=== PATIENT | female | born 1990 | race Caucasian/White ===

== ENCOUNTER 2017-08-04 14:13 | Emergency (ER) | payer SELFPAY ==
[2017-08-04] MEDS ORDERED: NS 0.9% 1000 ML* 2,000 ML IV ONE (14:58)
[2017-08-04] MEDS ORDERED: Ondansetron INJ* 2 MG/ML VIAL IV ONE (14:58)
[2017-08-04 15:33] LABS: Urine Appearance Cloudy; Urine Blood Negative (Negative); Urine Color Amber; Urine Ketones 2+ (Negative); Urine Protein 1+(30 mg/dL) (Negative); Urine Specific Gravity 1.029 (1.010-1.030); Urine Urobilinogen Negative (Negative)
[2017-08-04 16:54] LABS: ABS Basophils 0 10^3/ul (0-0.2); ABS Eosinophils 0 10^3/ul (0-0.6); ABS Lymphocytes 2.4 10^3/ul (1.0-4.8); ABS Monocytes 0.4 10^3/ul (0-0.8); ABS Neutrophils 5.1 10^3/ul (1.5-7.7); ABS Nucleated RBC 0 10^3/ul; Eosinophil % 0.4 % (0-6); Hematocrit 38 % (35-47); Hemoglobin 13.5 g/dl (12.0-16.0); Lymphocyte % 30.3 % (25-47); Mean Corpuscular HGB Conc 35 g/dl (31-36); Mean Corpuscular Hemoglobin 32 pg (27-31); Mean Corpuscular Volume 90 fL (80-97); Mean Platelet Volume 7.1 um3 (7.4-10.4); Nucleated Red Blood Cells % 0; Platelet Count 317 10^3/ul (150-450); Red Blood Count 4.28 10^6/ul (4.0-5.4); Red Cell Distribution Width 16 % (10.5-15)
[2017-08-04 17:14] LABS: EGFR Non-African American 138.4 (>60)
[2017-08-04 18:34] VITALS: BP 120/92
--- NOTE | 2017-08-07 07:48 | ED ---
Shubham Alaniz Angela, scribed for Joselito Eastman MD on 08/04/17 at 1501 . - HPI Summary HPI Summary: This pt is a 27 y/o female, currently 8 weeks , presenting to [facility] c/o nausea and vomiting since 04:00 this morning. Pt reports she is unable to keep anything down secondary to vomiting. She states her symptoms are aggravated by ambulation. Additionally she c/o chills, hot flashes, and white vaginal discharge (which she notes it's normal). Denies vaginal bleeding, abdominal cramping. Her first appointment with her OBGyn is in 3 days. - History of Current Complaint Chief Complaint: EDNoryuseaVomitDiarrjeremiah Stated Complaint: VOMITTING/8 WKS PREG Time Seen by Provider: 08/04/17 14:55 Hx Obtained From: Patient Chief Complaint: Vaginal Discharge - white, Other: - nausea and vomiting Onset/Duration: Started Hours Ago, Still Present Timing: Lasting Hours Current Severity: None Pain Intensity: 0 Location of Pain: None Character: None Aggravating Factors: Other: - ambulating Alleviating Factors: Nothing Associated Signs and Symptoms: Positive: Nausea, Vaginal Bleeding or Discharge - POS: vaginal discharge. NEG: vaginal bleeding, Vomiting. Negative: Fever, Urinary Symptoms - Assessment Hx Now: No - Additional Pertinent History Primary Care Physician: [id number] - Allergies/Home Medications Allergies/Adverse Reactions: Allergies Allergy/AdvReac Type Severity Reaction Status Date / Time morphine Allergy Hives Verified 08/04/17 14:23 Home Medications: Home Medications Buprenorphine TAB* [Subutex TAB*] 8 mg SL TID 08/04/17 [History Confirmed ] PMH/Surg Hx/FS Hx/Imm Hx Endocrine/Hematology History: Denies: Hx Diabetes, Hx Thyroid Disease Cardiovascular History: Denies: Hx Hypertension Respiratory History: Denies: Hx Asthma, Hx Chronic Obstructive Pulmonary Disease (COPD) GI History: Denies: Hx Ulcer Psychiatric History: Reports: Hx Substance Abuse - IV drug use - Surgical History Surgery Procedure, Year, and Place: Tonsillectomy age 16 Infectious Disease History: No Infectious Disease History: Reports: Hx Hepatitis Denies: Hx Clostridium Difficile, Hx Human Immunodeficiency Virus (HIV), Hx of Known/Suspected MRSA, Hx Shingles, Hx Tuberculosis, Hx Known/Suspected VRE, Hx Known/Suspected VRSA, History Other Infectious Disease, Traveled Outside the [place] in Last 30 Days - Family History Known Family History: Positive: None - Social History Alcohol Use: None Substance Use Type: Reports: Heroin Substance Use Comment - Amount & Last Used: OPIATES Smoking Status (MU): Light Every Day Tobacco Smoker Type: Cigarettes Amount Used/How Often: 1/4 PPD Length of Time of Smoking/Using Tobacco: 6+ years Review of Systems Constitutional: Other - hot flashes Positive: Chills. Negative: Fever Positive: Vomiting, Nausea. Negative: Abdominal Pain Positive: discharge - white . Negative: other - vaginal bleeding Skin: Negative Neurological: Negative All Other Systems Reviewed And Are Negative: Yes Physical Exam - Summary Physical Exam Summary: VITAL SIGNS: Reviewed. GENERAL: Patient is a well-developed and nourished female who is lying comfortable in the stretcher. Patient is not in any acute respiratory distress. HEAD AND FACE: No signs of trauma. No ecchymosis, hematomas or skull depressions. No sinus tenderness. EYES: PERRLA, EOMI x 2, No injected conjunctiva, no nystagmus. EARS: Hearing grossly intact. Ear canals and tympanic membranes are within normal limits. MOUTH: Oropharynx within normal limits. NECK: Supple, trachea is midline, no adenopathy, no JVD, no carotid bruit, no c- spine tenderness, neck with full ROM. CHEST: Symmetric, no tenderness at palpation LUNGS: Clear to auscultation bilaterally. No wheezing or crackles. CVS: Regular rate and rhythm, S1 and S2 present, no murmurs or gallops appreciated. ABDOMEN: Soft, non-tender. No signs of distention. No rebound no guarding, and no masses palpated. Bowel sounds are normal. EXTREMITIES: FROM in all major joints, no edema, no cyanosis or clubbing. NEURO: Alert and oriented x 3. No acute neurological deficits. Speech is normal and follows commands. SKIN: Dry and warm - Physical Exam Triage Information Reviewed: Yes Vital Signs Reviewed: Yes Diagnostics - Vital Signs Vital Signs Temp Pulse Resp BP Pulse Ox 08/04/17 14:19 97.3 F 74 18 125/80 97 - Laboratory Result Diagrams: 08/04/17 16:30 08/04/17 17:59 Lab Statement: Any lab studies that have been ordered have been reviewed, and results considered in the medical decision making process. Re-Evaluation - Re-Evaluation First Eval Re-Evaluation Time: 17:55 Comment: Potassium is hemolyzed. Pt declines repeat blood work. Course/Dx - Course Assessment/Plan: This pt is a 27 y/o female, currently 8 weeks , presenting to [facility] c/o nausea and vomiting since 04:00 this morning. Pt reports she is unable to keep anything down secondary to vomiting. She states her symptoms are aggravated by ambulation. Additionally she c/o chills, hot flashes, and white vaginal discharge (which she notes it's normal). Denies vaginal bleeding, abdominal cramping. Her first appointment with her OBGyn is in 3 days. Test results without any significant abnormalities. In the ED course the pt was give IV fluids and Zofran for the nausea. After these medications, the pt is drinking and eating without nausea and vomiting. Therefore she will be discharged to home with follow up from her PCP. I discussed all the findings and test results with the patient. All questions were answered to patient satisfaction. There were no further complaints or concerns. Pt was given a prescription for Diclegis. She is instructed to return to the ED for any worsening or new symptoms. Pt is hemodynamically stable, alert and oriented x3. - Diagnoses Provider Diagnoses: Nausea and vomiting in , Hyperemesis gravidarum Discharge - Sign-Out/Discharge Documenting (check all that apply): Discharge - discharge to home - Discharge Plan Condition: Stable Disposition: HOME Prescriptions: Doxylamine/Pyridoxine(NF) [Diclegis (NF)] 1 tab PO BID #20 tab Patient Education Materials: Nausea and Vomiting in (ED), Hyperemesis Gravidarum (ED) Referrals: [facility] [Provider Group] (Address: [place] [address] ) No Primary Care Phys,NOPCP [Primary Care Provider] - Additional Instructions: Please follow up with your OBGyn as scheduled this Thursday. RETURN TO THE ED FOR ANY NEW OR WORSENING SYMPTOMS. The documentation as recorded by the Shubham wagner Angela accurately reflects the service I personally performed and the decisions made by me, Joselito Eastman MD.
== END 2017-08-04 18:32 | disposition home or self-care (01) ==
LOC: ED 14:13
DX: O21.0 Mild hyperemesis gravidarum (principal); R68.83 Chills (without fever); N89.8 Other specified noninflammatory disorders of vagina; Z3A.08 8 weeks gestation of pregnancy; Z88.5 Allergy status to narcotic agent; F17.210 Nicotine dependence, cigarettes, uncomplicated
CPT/HCPCS: 36415; 80053; 81003; 81015; 83690; 84702; 85025; 86140; 87086; 96374; 99283; J2405

== ENCOUNTER 2017-08-22 10:59 | Emergency (ER) | payer SELFPAY ==
[2017-08-22] MEDS ORDERED: Ondansetron INJ* 2 MG/ML VIAL IV ONE (11:34)
[2017-08-22] MEDS ORDERED: NS 0.9% 1000 ML* 1,000 ML IV ONE (11:34)
[2017-08-22] MEDS ORDERED: Ondansetron ODT TAB* 4 MG ONE (12:02)
[2017-08-22] MEDS ORDERED: Ondansetron ODT TAB* 4 MG SL ONE ×3 (12:02→16:06)
--- NOTE | 2017-08-22 12:13 | ED ---
- HPI Summary HPI Summary: Patient is a 27-year-old 10 week female who presents to the ED with chief complaint of intractable nausea vomiting 3 days. She states she has had insomnia over the past 2 days due to the profuse amount of vomiting. She continues to drink, but is not eating well. She has been taking Reglan at home without relief and states [employer] normally works for her. Denies any abdominal pain or diarrhea or constipation. Denies any vaginal discharge, abnormal bleeding. History of Iv drug use, last use 11 months ago per patient. Smoker. She is attempting to quit at this time. She denies any other concerns or complaints. Afebrile and vital signs stable on arrival, denies any fevers, sweats, chills. - History of Current Complaint Chief Complaint: EDNauseaVomitDiarrh Stated Complaint: VOMITING Time Seen by Provider: 08/22/17 11:27 Hx Obtained From: Patient Onset/Duration: Started Days Ago Timing: Constant Severity: Moderate Current Severity: Moderate Pain Intensity: 2 Associated Signs and Symptoms: Positive: Nausea - Assessment Hx Now: No - Additional Pertinent History Primary Care Physician: [id number] - Allergies/Home Medications Allergies/Adverse Reactions: Allergies Allergy/AdvReac Type Severity Reaction Status Date / Time morphine Allergy Hives Verified 08/22/17 11:02 PMH/Surg Hx/FS Hx/Imm Hx Previously Healthy: Yes Endocrine/Hematology History: Denies: Hx Diabetes, Hx Thyroid Disease Cardiovascular History: Denies: Hx Hypertension Respiratory History: Denies: Hx Asthma, Hx Chronic Obstructive Pulmonary Disease (COPD) GI History: Denies: Hx Ulcer Psychiatric History: Reports: Hx Substance Abuse - IV drug use - Surgical History Surgery Procedure, Year, and Place: Tonsillectomy age 16 - Immunization History Hx Pertussis Vaccination: No Immunizations Up to Date: Yes Infectious Disease History: No Infectious Disease History: Reports: Hx Hepatitis Denies: Hx Clostridium Difficile, Hx Human Immunodeficiency Virus (HIV), Hx of Known/Suspected MRSA, Hx Shingles, Hx Tuberculosis, Hx Known/Suspected VRE, Hx Known/Suspected VRSA, History Other Infectious Disease, Traveled Outside the [place] in Last 30 Days - Family History Known Family History: Positive: None - Social History Occupation: Unemployed Lives: With Family Alcohol Use: None Hx Substance Use: Yes Substance Use Type: Reports: Heroin Substance Use Comment - Amount & Last Used: OPIATES 11 months ago heroin & opiates Hx Tobacco Use: Yes Smoking Status (MU): Light Every Day Tobacco Smoker Type: Cigarettes Amount Used/How Often: 1/4 PPD Length of Time of Smoking/Using Tobacco: 6+ years Review of Systems Constitutional: Negative Negative: Fever, Chills, Fatigue, Skin Diaphoresis Eyes: Negative Cardiovascular: Negative Positive: Vomiting, Nausea Musculoskeletal: Negative Skin: Negative Neurological: Negative All Other Systems Reviewed And Are Negative: Yes Physical Exam - Physical Exam Triage Information Reviewed: Yes Vital Signs Reviewed: Yes Appearance: Positive: Well-Appearing, Well-Nourished Skin: Positive: Warm, Skin Color Reflects Adequate Perfusion Head/Face: Positive: Normal Head/Face Inspection Eyes: Positive: EOMI, MILLY Neck: Positive: Supple, No Lymphadenopathy Respiratory/Lung Sounds: Positive: Clear to Auscultation, Breath Sounds Present Cardiovascular: Positive: RRR, Pulses are Symmetrical in both Upper and Lower Extremities Abdomen Description: Positive: Soft. Negative: CVA Tenderness (R), CVA Tenderness (L), McBurney's Point Tenderness Neurological: Positive: Normal, Sensory/Motor Intact, Alert, Oriented to Person Place, Time Psychiatric: Positive: Normal AVPU Assessment: Alert Diagnostics - Vital Signs Vital Signs Temp Pulse Resp BP Pulse Ox 08/22/17 11:02 98.4 F 73 20 118/73 100 - Laboratory Lab Statement: Any lab studies that have been ordered have been reviewed, and results considered in the medical decision making process. Course/Dx - Course Course Of Treatment: Patient is evaluated for nausea vomiting acutely at 10 weeks . She is given ODT Zofran in the ED and states this normally works for her. She has been taking Reglan at home without relief. She was given Zofran ODT without relief on arrival. Attempted to line and lab her several times. She continues to vomit. She was given another Zofran ODT and again vomited. Continue to attempt to get a line with an attempt for a left- sided EJ. Patient is an IV drug user and 3 RNs and provider attempted to get lines without success. Tigan 200 mg IM given with relief. She also complains of some heartburn due to vomiting. She is given Maalox 30 ml with relief. She continues to drink water, devon nba and crackers. She states she feels better , denies any nausea or vomiting at this time and requests to be discharged. She is okay for discharge at this time and will follow up with her [facility]. Zofran prescription sent. She is encouraged to take Reglan first-line, and Zofran and Reglan does not seem to be improving her symptoms. Maalox also given for any epigastric discomfort. - Differential Diagnosis/HQI/PQRI: Other: - Nausea, vomiting, vomiting in , cyclic vomiting syndrome - Diagnoses Provider Diagnoses: Nausea/vomiting in Discharge - Sign-Out/Discharge Documenting (check all that apply): Discharge - Discharge Plan Condition: Stable Disposition: HOME Prescriptions: Al Hydrox/Mg Hydrox/Simet LIQ* [Maalox Plus*] 30 ml PO Q4H PRN #360 udc PRN Reason: Pain Ondansetron ODT TAB* [Zofran 4 MG Odt TAB*] 4 mg PO Q6H PRN #12 tab.odt MDD 4 PRN Reason: Nausea Patient Education Materials: Nausea and Vomiting in (ED) Referrals: Bobby Degroot MD [Medical Doctor] - No Primary Care Phys,NOPCP [Primary Care Provider] - Additional Instructions: Please follow up with [facility] Take Reglan as first line for any nausea vomiting and If this continues to not improve your symptoms, you may take Zofran Maalox for any epigastric pain related to vomiting - Billing Disposition and Condition Condition: STABLE Disposition: HOME
[2017-08-22] MEDS ORDERED: Trimethobenzamide IM* 100 MG/ML 2 ml VIAL IM ONE (13:52)
[2017-08-22] MEDS ORDERED: Al Hydrox/Mg Hydrox/Simet LIQ* 30 ML UDC PO ONE (16:06)
[2017-08-22 17:43] VITALS: BP 116/80
== END 2017-08-22 17:42 | disposition home or self-care (01) ==
LOC: ED 10:59
DX: O21.0 Mild hyperemesis gravidarum (principal); Z3A.10 10 weeks gestation of pregnancy; O99.331 Smoking (tobacco) complicating pregnancy, first trimester; F17.210 Nicotine dependence, cigarettes, uncomplicated
CPT/HCPCS: 96360; 96374; 99283; A9270-GY; J2405; J3250

== ENCOUNTER 2018-03-10 07:47 | Inpatient (IN) | payer OTHER ==
[2018-03-10] MEDS ORDERED: Nicotine Inhaler* 10 MG AMP INH PRN (08:45)
[2018-03-10] MEDS ORDERED: Mouth Piece, Nicotine* 1 EACH CARTRIDGE INH PRN (08:47)
[2018-03-10] MEDS ORDERED: Oxytocin in LR* 20 UNITS/1,000 ML BAG IVPB SCH (09:00)
--- NOTE | 2018-03-10 09:06 | HP ---
General Information - Reason for Visit Term with IUGR here for induction of labor - General Information Maternal Age: 27 Grav: 2 Para: 1 SAB: 0 IEA: 0 Estimated Due Date: 03/17/18 Determined By: LMP Maternal Blood Type and Rh: O Positive - Results this Serology/RPR Result: Non-Reactive Rubella Result: Immune HBsAg Result: Negative HIV Result: Negative GBS Culture Result: Negative Past Medical History Delivery History: Hx Uncomplicated Vaginal Delivery Delivery History Comment: SVB 2007 Pertinent Past Medical History: See Records Past Medical History Comment: Hx drug abuse, currently on Subutex Hep C, currently undetectable Depression Blind in right eye Pertinent Past Surgical History: See Records Past Surgical History Comment: Tonsillectomy Right arm surgeries secondary to abcesses 2013 Pertinent Family History: See Records Family History Comment: Alcoholism Lung dz [place] Liver Ca Emphysema - Antepartal Records Antepartal Records: Reviewed, Complicated by: - IUGR, on Subutex, smoker, THC use Review of Systems Constitutional: Comfortable CV Complaint: No Respiratory: Shortness of Breath: No Gastrointestinal: No Nausea/Vomiting, Normal Bowel Movement Genitourinary: No Dysuria, No Bleeding, No Leaking Fluid Musculoskeletal: Contractions Neurological: No Headache, No Visual Changes Movement: Normal Exam Allergies/Adverse Reactions: Allergies morphine Allergy (Verified 08/22/17 11:02) Hives BP 122/81 T 97.6 HR 85 O2 100 RR 17 - Measurements Height: 5 ft Weight: 126 lb Weight in lbs: [id number] Body Mass Index (BMI): 24.6 Pre- Weight: 105 lb Weight Gained This : 21 lbs and 0 ozs - Exam Breast: Breast Exam Deferred CVA: No CVA Tenderness Extremities: No Edema Heart: Normal Rhythm/Heart Sounds HEENT: No Significant Findings Lungs: Clear Bilaterally Rectal: Rectal Exam Deferred Reflexes: DTR 2+, - - no clonus Thyroid: - - WNL @ entry to care - Abdominal Exam Abdomen Exam: Non-Tender, Fundal Height Consistent with Dates - Ultrasound/Biophysical Profile Ultrasound Status: Not Done Targeted Exam Findings See L&D Outpatient Visit Provider Note for Findings: Yes Estimated Weight: 5lb Presenting Part: Vertex Membrane Status: Intact Bleeding/Discharge: None EFM Findings - External Monitor Findings Baseline Heart Rate: 130 External Monitor Findings: Accelerations Present, No Pattern of Variable or Late Decelerations, Variability Moderate Contractions: Irregular, Mild, < 45 Seconds Contraction Frequency: Q 15 min Assessment/Plan - Assessment 27 yo with IUP @ 39+0 weeks gestation. IBOW. No evidence acidemia - Obstetrical Risk Factors Obstetrical Risk Factors: Substance Abuse, Tobacco Use, IUGR - Plan Plan: Induction, Admit - Anticipate Vaginal Delivery Plan Comment: Admit to L&D. PARQ discussion use of pitocin for labor induction. Patient in agreement and will initiate IV and begin low-dose pitocin. Patient may desire labor epidural or spinal anesthesia. Consider hydrotherapy and nitrous for pain management as well. Anticipate SVB. - Date/Time of Admission Date of Admission: 03/10/18 Time of Admission: 08:29
[2018-03-10 10:06] LABS: ABS Basophils 0 10^3/ul (0-0.2); ABS Eosinophils 0.2 10^3/ul (0-0.6); ABS Lymphocytes 2.5 10^3/ul (1.0-4.8); ABS Monocytes 0.5 10^3/ul (0-0.8); ABS Nucleated RBC 0 10^3/ul; Eosinophil % 2.3 % (0-6); Hematocrit 37 % (35-47); Hemoglobin 12.7 g/dl (12.0-16.0); Lymphocyte % 24.6 % (25-47); Mean Corpuscular HGB Conc 35 g/dl (31-36); Mean Corpuscular Hemoglobin 34 pg (27-31); Mean Corpuscular Volume 99 fL (80-97); Mean Platelet Volume 7.4 fL (7.4-10.4); Nucleated Red Blood Cells % 0; Platelet Count 412 10^3/ul (150-450); Red Blood Count 3.72 10^6/ul (4.00-5.40); Red Cell Distribution Width 13 % (10.5-15); White Blood Count 10.2 10^3/ul (3.5-10.8)
[2018-03-10] MEDS ORDERED: OBEPIDURAL* 250 ML EPIDURAL ONE (11:39)
[2018-03-10] MEDS ORDERED: EPHEDrine (Pressors)* 50 MG/ML VIAL IV PUSH PRN ×2 (12:32)
[2018-03-10] MEDS ORDERED: Famotidine TAB* 20 MG PO PRN (12:32)
[2018-03-10] MEDS ORDERED: Sodium Citrate/Citric Acid* 15 ML UDC PO PRN (12:32)
[2018-03-10] MEDS ORDERED: Phenylephrine IV* 40 MCG/ML 10 ML SYRINGE IV PUSH PRN ×2 (12:32)
[2018-03-10] MEDS ORDERED: OBEPIDURAL* 250 ML EPIDURAL SCH (13:00)
[2018-03-10] MEDS ORDERED: Dibucaine 1% 28.35 GM TUBE PR PRN (16:22)
[2018-03-10] MEDS ORDERED: Witch Hazel PAD* JAR TOPICAL PRN (16:22)
[2018-03-10] MEDS ORDERED: Acetaminophen TAB* 325 MG PO PRN (16:22)
[2018-03-10] MEDS ORDERED: Glycerin ADULT SUPP PR PRN (16:22)
--- NOTE | 2018-03-10 16:41 | PROCNOTE ---
[facility] OB: Delivery Note - Delivery A Date of : 03/10/18 Time of : 15:59 [place] Sex: Female Weight at : 4 lb 5 oz Score 1 Minute: 9 Score 5 Minutes: 9 Gestational Age in Weeks and Days at Delivery: 39 Weeks and 0 Days Delivery Method: Spontaneous Vaginal Labor: Spontaneous Did Patient attempt ?: N/A, No Previous Amniotic Fluid: Clear Estimated Blood Loss: 250 Anesthesia/Analgesia: CEI for Labor Delivered By: Paulino Lombardo - Nursery Level of Nursery: Regular/Bedside - Perineum Perineal Injury: None/Intact Perineal Repair: None - Events Delivery Events of Note: Pitocin During Labor - Additional Delivery Notes Additional Delivery Notes: Patient admitted for induction of labor for IUGR. Pitocin initiated. Patient requested epidural and received it with good effect. Steady progression to complete with urge to push. LOL 5'08", pushed 43 min. Baby born OA to ANA LILIA, loose nuchal X1 unwrapped on perineum, shoulders following smoothly at 1559. Baby with spontaneous cry, eyes open and HR >110, delivered to maternal abdomen. Cord doubly clamped and cut by aunt. Placenta delivered Foley with gentle cord traction @ 1608. Noted to have 3VC, appearance of complete membranes , no abnormalities. Fundus firm to massage. Perineum intact. EBL 250ml.
[2018-03-10] MEDS: Ibuprofen TAB* 600 MG PO PRN (19:12)
[2018-03-10] MEDS: Docusate CAP* 100 MG PO SCH (21:09)
[2018-03-11] MEDS: Docusate CAP* 100 MG PO SCH ×3 (00:07→21:51)
[2018-03-11] MEDS ORDERED: Ferrous Gluconate TAB* 324 MG TAB PO SCH (09:00)
[2018-03-11 09:43] LABS: ABS Basophils 0 10^3/ul (0-0.2); ABS Eosinophils 0.2 10^3/ul (0-0.6); ABS Lymphocytes 2.2 10^3/ul (1.0-4.8); ABS Monocytes 0.4 10^3/ul (0-0.8); ABS Neutrophils 6.2 10^3/ul (1.5-7.7); ABS Nucleated RBC 0 10^3/ul; Eosinophil % 2.3 % (0-6); Hematocrit 37 % (35-47); Hemoglobin 12.7 g/dl (12.0-16.0); Lymphocyte % 24.9 % (25-47); Mean Corpuscular HGB Conc 34 g/dl (31-36); Mean Corpuscular Hemoglobin 34 pg (27-31); Mean Corpuscular Volume 99 fL (80-97); Mean Platelet Volume 7.6 fL (7.4-10.4); Nucleated Red Blood Cells % 0; Platelet Count 392 10^3/ul (150-450); Red Blood Count 3.73 10^6/ul (4.00-5.40); Red Cell Distribution Width 13 % (10.5-15)
[2018-03-11] MEDS: Buprenorphine TAB* 8 MG SL SCH (10:11)
[2018-03-11] MEDS: Ibuprofen TAB* 600 MG PO PRN ×2 (10:11→21:06)
[2018-03-11] MEDS ORDERED: Docusate CAP* 100 MG ONE (17:03)
[2018-03-12 08:25] VITALS: BP 105/65
[2018-03-12] MEDS: Docusate CAP* 100 MG PO SCH ×2 (08:33→17:38)
[2018-03-12] MEDS: Ibuprofen TAB* 600 MG PO PRN ×2 (08:33→17:39)
[2018-03-12] MEDS: Buprenorphine TAB* 8 MG SL SCH (08:34)
== END 2018-03-12 17:42 | disposition home or self-care (01) | DRG 560 ==
LOC: MCHOBOUT 07:47 → MCHOB 08:29
PROVIDERS: ADMIT Midwife; ATTEND Midwife
PROC: 10907ZC Drainage of Amniotic Fluid, Therapeutic from Products of Conception, Via Natural or Artificial Opening (ICD-10-PCS; principal; 2018-03-10)
PROC: 3E033VJ Introduction of Other Hormone into Peripheral Vein, Percutaneous Approach (ICD-10-PCS; 2018-03-10)
PROC: 10E0XZZ Delivery of Products of Conception, External Approach (ICD-10-PCS; 2018-03-10)
PROC: 4A1HXCZ Monitoring of Products of Conception, Cardiac Rate, External Approach (ICD-10-PCS; 2018-03-10)
DX: O36.5930 Maternal care for other known or suspected poor fetal growth, third trimester, not applicable or unspecified (principal); O99.324 Drug use complicating childbirth; Z37.0 Single live birth; H54.61 Unqualified visual loss, right eye, normal vision left eye; F12.90 Cannabis use, unspecified, uncomplicated; O99.334 Smoking (tobacco) complicating childbirth; Z88.5 Allergy status to narcotic agent; Z3A.39 39 weeks gestation of pregnancy; O69.1XX0 Labor and delivery complicated by cord around neck, with compression, not applicable or unspecified; F17.200 Nicotine dependence, unspecified, uncomplicated
CPT/HCPCS: 36415; 85025; 86803; 86850; 86900; 86901; A9270-GY

== ENCOUNTER 2018-09-18 11:26 | Emergency (ER) | payer OTHER ==
--- OUTSIDE RECORDS SUMMARY | 2018-09-18 11:34 | XMS REPORT | Continuity of Care Document ---
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 Payers Date Identification Numbers Payment Provider Subscriber Policy Number: [id number] [facility] Linda Darden PayID: [id number] [address] [place] [address] Policy Number: [id number] Medicaid SEVEN Darden PayID: [id number] [address] [place] [address] Advance Directives Description No Information Available Problems Active Problems Provider Date Multigravida Kasi Morales CNM Onset: 08/07/2017 History of opioid abuse Kasi Morales CNM Onset: 08/07/2017 Note: Currently on subutex through [facility] Family History Date Family Member(s) Observation Comments Father Alcoholism Mother Lung Disease Former Smoker First Son A&W First Brother A&W Second Brother A&W First Sister Diabetes, Type 2 Paternal Grandfather due to SC () Paternal Grandmother Unknown Maternal Grandfather due to Emphysema () Maternal Grandmother due to Liver Cancer () Maternal Aunts Metastatic Lung Cancer smoker Social History Type Date Description Comments Sex Unknown Education Highest level of education completed is 10th grade Marital Status Patient is single Living Situation Lives with son, older sister and mother Occupation Unemployed Cigarette Use Current cigarette smoker: 1/2 PPD Alcohol Does not drink alcohol Drug Use 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 Uses marijuana as needed for nausea Daily Caffeine Drinks on average 2 sodas a day Seat Belt/Car Seat Always uses a seat belt STD's No STD history DEYSI: 03/19/2018 Estimated Date of Delivery Based on 1st Ultrasound Allergies, Adverse Reactions, Alerts Active Allergies Reaction Severity Comments Date Morphine Rash Moderate 09/01/2007 Whole Wheat Allergenic Extract Throat swells Severe 08/07/2017 Medications Active Medications SIG Qnty Indications Ordering Date Provider Nicotine Transdermal apply 1 patch 14units Cely Herrera, 12/23/2017 System daily CNM 7mg/24HR Patches 24HR Adult 1 by mouth daily 30units Hetal 10/09/2017 Gummy/Dha/Folic Acid okay to substitute Magaly, LM any pnv w/ dha. 0.4-25mg Chewtabs Multivitamin take one/ day. september 30caps Petra 08/07/2017 Plus Dha substitute any pnv Macjaspreet, CNM 27-0.8-250mg w/ dha. Capsules Buprenorphine HCL 1.5 tabs daily Unknown 8mg History Medications Metoclopramide HCL 1-2 tabs by mouth 90tabs Paulino Lombardo, 08/14/2017 - 5mg every 6 hours as CN 08/14/2017 Tablets Dispers needed for nausea Metoclopramide HCL 1-2 tabs by mouth Paulino Lombardo, 08/14/2017 - 5mg every 6 hours as [facility] 08/26/2017 Tablets needed for nausea Janae take one pill each 2mon Susan Santacruz 12/01/2008 - 3-0.02mg Tablets day, begin Thursday Eveline Mott 04/29/2009 of next period Bactrim DS one tab po bid x 7 14tabs Susan Santacruz 11/30/2008 - 800-160 Tablets days Eveline Mott 04/29/2009 Zantac One Tab PO Daily, 30tabs Mackenzie Johnston NP, 04/14/2008 - 150mg Tablets May Increase To bid CN 04/29/2009 If Needed Terazol 3 Apply with 3Days Triny Maki, 11/11/2007 - 0.8% Cream applicator per [facility] 02/25/2008 instructions. Vitamins 1 PO qd 90tabs Patricia Hayden, 09/01/2007 - Tablets ANP-C 04/29/2009 Phenergan 1 Tablet PO Q6HRS 30tabs Mayra Pacheco, 09/01/2007 - 25mg Tablets prn Nausea CN 02/25/2008 Immunizations CPT Code Status Date Vaccine Lot # [id number] Given 02/26/2018 Influenza Vaccine Quadrivalent Preser/Antibiotic [id number] Free [place] Use [id number] Given 12/25/2017 Tetnus, Diptheria Toxoids And Acellular Pertussis, 4P9CL PT > 7Yrs Old [id number] Given 02/25/2008 Influenza Virus Vaccine 3Years Or Older Vital Signs Date Vital Result Comment 04/20/2018 8:00am BP Systolic 112 mmHg BP Diastolic 70 mmHg Height 60.5 inches 5'0.50" Weight 116.00 lb BMI (Body Mass Index) 22.3 kg/m2 Last Menstrual Period [id number] 2 Parity 2 08/07/2017 9:48am BP Systolic 104 mmHg BP Diastolic 62 mmHg Height 60.5 inches 5'0.50" Weight 111.00 lb BMI (Body Mass Index) 21.3 kg/m2 Last Menstrual Period [id number] 2 Parity 1 09/27/2009 2:17pm BP Systolic 98 mmHg BP Diastolic 56 mmHg Height 60.5 inches 5'0.50" Weight 101.00 lb BMI (Body Mass Index) 19.4 kg/m2 Last Menstrual Period [id number] 1 Parity 1 06/08/2009 10:08am BP Systolic 94 mmHg BP Diastolic 56 mmHg Height 60 inches 5'0" Weight 105.00 lb BMI (Body Mass Index) 20.5 kg/m2 Last Menstrual Period 0343086 1 Parity 1 04/30/2009 7:51am BP Systolic 112 mmHg BP Diastolic 52 mmHg Height 61 inches 5'1" Weight 111.00 lb BMI (Body Mass Index) 21.0 kg/m2 Last Menstrual Period [id number] 1 Parity 1 12/01/2008 9:07am BP Systolic 98 mmHg BP Diastolic 60 mmHg Body Temperature 97.7 F Height 61 inches 5'1" Weight 111.00 lb BMI (Body Mass Index) 21.0 kg/m2 Last Menstrual Period [id number] 11/28/2008 10:43am BP Systolic 118 mmHg BP Diastolic 68 mmHg Weight 110.00 lb Last Menstrual Period [id number] 06/09/2008 11:32am BP Systolic 122 mmHg BP Diastolic 70 mmHg Weight 115.00 lb 04/28/2008 9:09am BP Systolic 121 mmHg BP Diastolic 78 mmHg Body Temperature 98.5 F Heart Rate 90 /min Respiratory Rate 18 /min Height 61 inches 5'1" Weight 132.00 lb BMI (Body Mass Index) 24.9 kg/m2 09/01/2007 1:30pm BP Systolic 108 mmHg BP Diastolic 56 mmHg Height 61.25 inches 5'1.25" Weight 110.00 lb BMI (Body Mass Index) 20.6 kg/m2 Last Menstrual Period [id number] Results Test Date Facility Test Result H/L Range Note Laboratory test 02/11/2018 [facility] Genital For GRP B SEE RESULT 1 finding [place] [address] Strep Only BELOW [phone] Laboratory test 12/31/2017 [facility] Gardnerella/Yeast: SEE RESULT 2 finding [place] [address] Vaginal Dna BELOW [phone] Sequential 10/28/2017 [facility] Interpretation SEE BELOW 3 Integreated SCRN 2 [place] Risk For Ontd <1:5000 Age Risk Down Syndrome 1:920 LAUREN Down Syndrome Risk <1:5000 <1:270 LAUREN Trisomy 18 Risk <1:5000 <1:100 Calculated Gestational Age 19.6 4 Afp,Serum 60.5 ng/mL Afp Mom 0.93 5 HCG,Serum 17.8 IU/mL HCG Mom 0.73 Estriol,Free 1.82 ng/mL Estriol Mom 0.95 Inhibin A,Dimeric 516 pg/mL Inhibin A Mom 2.43 Winsome-A 3043.1 ng/mL 6 Winsome-A Mom 2.26 NT Mom 1.07 7 Referring Physician Name NOT GIVEN Referring Physician Phone NOT GIVEN Referring Physician Npi NOT GIVEN Specimen # From Part 1 NOT GIVEN Date Of 1990 Collection Date 10/28/2017 Maternal Weight 111 lbs Est'd Date Of Delivery 03/19/2018 Nuchal Translucency 1.6 mm [place] Rump Length 67 mm Ultrasound Date 09/11/2017 Nasal Bone NOT GIVEN Mother's Ethnic Origin Insulin Depend Diabetic NO Repeat Specimen NO Number Of Fetuses 1 HX Of Neural Tube Defects NO Cigarette Smoker NOT GIVEN Twin B Nasal Bone N 8 Urine Drug 09/11/2017 [facility] Urine Amphetamine Negative ng/ mL 9 Comp 20 Test [place] [address] [phone] Urine Barbiturates Negative ng/mL 10 Urine Benzodiazepines Negative ng/mL 11 Urine Cocaine Negative ng/mL 12 Urine Phencyclidine Negative ng/mL Cutoff: 25 Urine Tetrahydrocannabinol Presumptive Posi <SEE NOTE> Abnormal Cutoff: 50 13 ng/mL Creatinine, Urine 91.6 mg/dL Specific [place] 1.014 pH 6.3 Oxidants Negative 14 Adulterants Comment Normal Codeine, Ur Not Detected ng/mL Cutoff: 25 15 Qguoafm-4-bzld-glucuronide, Ur Not Detected ng/mL 16 Morphine, Ur Not Detected ng/mL Cutoff: 25 17 Hpedcdix-6-rszz-glucuronide, U Not Detected ng/mL 18 6-monoacetylmorphine, Ur Not Detected ng/mL Cutoff: 25 19 Hydrocodone, Ur Not Detected ng/mL Cutoff: 25 20 Norhydrocodone, Ur Not Detected ng/mL Cutoff: 25 21 Dihydrocodeine, Ur Not Detected ng/mL Cutoff: 25 22 Hydromorphone, Ur Not Detected ng/mL Cutoff: 25 23 Sotacxpglgtfl1lncclgkymcfcwuc Not Detected ng/mL 24 Oxycodone, Ur Not Detected ng/mL Cutoff: 25 25 Noroxycodone, Ur Not Detected ng/mL Cutoff: 25 26 Oxymorphone, Ur Not Detected ng/mL Cutoff: 25 27 Maszqhdrdsz-6-mbku-glucuronide Not Detected ng/mL 28 Noroxymorphone, Ur Not Detected ng/mL Cutoff: 25 29 Fentanyl, Ur Not Detected ng/mL Cutoff: 2 30 Norfentanyl, Ur Not Detected ng/mL Cutoff: 2 31 Meperidine, Ur Not Detected ng/mL Cutoff: 25 32 Normeperidine, Ur Not Detected ng/mL Cutoff: 25 33 Naloxone, Ur Not Detected ng/mL Cutoff: 25 34 Irjqaivb-2-mfwj-glucuronide, U Not Detected ng/mL 35 Methadone, Ur Not Detected ng/mL Cutoff: 25 36 Eddp, Ur Not Detected ng/mL Cutoff: 25 37 Propoxyphene, Ur Not Detected ng/mL Cutoff: 25 38 Norpropoxyphene, Ur Not Detected ng/mL Cutoff: 25 39 Tramadol, Ur Not Detected ng/mL Cutoff: 25 40 O-desmethyltramadol, Ur Not Detected ng/mL Cutoff: 25 41 Tapentadol, Ur Not Detected ng/mL Cutoff: 25 42 N-desmethyltapentadol, Ur Not Detected ng/mL Cutoff: 50 43 Uxejwvbsii-rmdq-ltkjdhkpexn, U Not Detected ng/mL 44 Buprenorphine, Ur Not Detected ng/mL Cutoff: 5 45 Norbuprenorphine, Ur Present ng/mL Abnormal Cutoff: 5 46 Norbuprenorphine glucuronide Present ng/mL Abnormal Cutoff: 20 47 Opioid Interpretation See Comment 48 Laboratory 09/11/2017 [facility] Hepatitis C Undetected Undetected 49 [place] [address] Rna Quant IU/mL [phone] Liver Function 09/11/2017 [facility] Total Protein 7.2 g/dL N 6.4-8.9 [place] [address] [phone] Albumin 3.9 g/dL N 3.2-5.2 Globulin 3.3 g/dL N 2-4 Albumin/Globulin Ratio 1.2 N 1-3 Total Bilirubin 0.20 mg/dL N 0.2-1.0 Direct Bilirubin 0.00 mg/dL Low 0.03-0.18 Alkaline Phosphatase 54 U/L N 34-104 Alt 9 U/L N 7-52 Ast 13 U/L N 13-39 THC Confirmation 09/11/2017 [facility] Urine Carboxy >500.0 ng/ mL 50 [place] [address] THC Confirm [phone] Urine THC Interpretation Positive. 51 Sequential Integrated SCRN 1 AR 09/11/2017 [facility] Interpretation SEE BELOW 52 Age Risk Down Syndrome 1:690 LAUREN Down Syndrome Risk IN PROCESS <1:50 LAUREN Trisomy 18 Risk IN PROCESS <1:100 Calculated Gestational Age 12.9 53 Winsome-A 3043.1 ng/mL 54 Winsome-A Mom 2.26 HCG,Serum 64.2 IU/mL HCG Mom 0.65 NT Mom 1.07 55 Referring Physician Name ESTEPHANIA 56 Referring Physician Phone [phone] Referring Physician Npi [phone] Date Of 1990 59 Collection Date 09/11/2017 60 Maternal Weight 111 lbs 61 Est'd Date Of Delivery 03/19/2018 62 DEYSI Determined By ULTRASOUND 63 Mother's Ethnic Origin 64 Number Of Fetuses 1 65 Insulin Depend Diabetic NO 66 Repeat Specimen NO 67 HX Of Neural Tube Defects NO 68 Prev Down Synd NO 69 Donor Egg NO 70 Donor Age:Egg Retrieval NA 71 Cigarette Smoker NG 72 Ultrasound Date 09/11/2017 73 Professional Security Officer's Name JAZMIN 74 NTQR Professional Security Officer Id# [id number] NTQR Location Id# [id number] NTQR Reading Phys Id# [id number] FMF Professional Security Officer Id# NA [id number] [place] Rump Length 67 mm 79 Nuchal Translucency 1.6 mm 80 Nasal Bone NOT GIVEN 81 If Twins NOT GIVEN 82 Twin B CRL NA mm 83 Twin B NT NA mm 84 Twin B Nasal Bone NA 85 PNL No 09/11/2017 [facility] Rubella Screen Immune Immune 86 [place] [address] [phone] Hemoglobin A1c 5.2 % N 4.0-5.6 87 Hepatitis B Surface Ag Nonreactive Nonreactive 88 Syphillis Igg W/Reflex RPR Nonreactive Nonreactive 89 CBC With No 09/11/2017 [facility] White Blood 8.3 10^3/uL N 3.5-10.8 [place] [address] Count [phone] Red Blood Count 4.05 10^6/uL N 4.0-5.4 Hemoglobin 13.1 g/dL N 12.0-16.0 Hematocrit 38 % N 35-47 Mean Corpuscular Volume 93 fL N 80-97 Mean Corpuscular Hemoglobin 32 pg High 27-31 Mean Corpuscular HGB Conc 35 g/dL N 31-36 Red Cell Distribution Width 15 % N 10.5-15 Platelet Count 393 10^3/uL N 150-450 Mean Platelet Volume 7.6 um3 N 7.4-10.4 Type And Screen 09/11/2017 [facility] Patient [place] [address] [phone] Antibody Screen NEGATIVE HIV 1/2 AB 09/11/2017 [facility] HIV 1 2 Nonreactive Nonreactive 90 [place] [address] Antibody [phone] Lead 09/11/2017 [facility] Lead,Venous, < 1.0 g/dL 0.0-4.9 91 [place] [address] B [phone] Submitting Laboratory Phone [phone] Urine Culture And 08/07/2017 [facility] Urine Culture SEE RESULT 93 [place] [address] BELOW [phone] GC/Chlamydia Dna 08/07/2017 [facility] Chlamydia [place] [address] trachomatis [phone] Rna Neisseria gonorrhoeae (GC) Rna Negative Negative Laboratory test 08/07/2017 [facility] Cytology SEE RESULT 94 finding [place] [address] BELOW [phone] Laboratory test 09/27/2009 [facility] Cytology 95 finding [place] [address] ---- <SEE [phone] NOTE> Laboratory test 06/08/2009 [facility] Surgical 96 finding [place] [address] Pathology ---- <SEE [phone] NOTE> Laboratory test 04/30/2009 [facility] Cytology 97 finding [place] [address] ---- <SEE [phone] NOTE> Ast-GP67 11/28/2008 [facility] Clindamycin <=0.25 S [address] [place] [address] [phone] Ciprofloxacin <=0.5 S Erythromycin <=0.25 S Gentamicin <=0.5 S Levofloxacin 0.25 S Linezolid 2 S Oxacillin >=4 R Rifampin <=0.5 S Trimeth-Sulfa <=10 S Tetracycline <=1 S Tigecycline <=0.12 S Vancomycin 1 S Laboratory test 11/28/2008 [facility] Genital METH RESIST [address] [place] [address] Culture S. A <SEE [phone] NOTE> Comp Metabolic 04/14/2008 [facility] Sodium 137 mmol/L 135- 14 [place] [address] 5 [phone] Potassium 3.7 mmol/L 3.5-5.0 Chloride 109 mmol/L 101-111 Co2 (Carbon Dioxide) 21.0 mmol/L Low 22-32 Anion Gap 7.0 mmol/L 2-11 100 Glucose 69 mg/dL Low 70-100 101 BUN 7 mg/dL 6-24 Creatinine 0.40 mg/dL Low 0.50-1.40 One Over Creatinine 2.50 BUN/Creatinine Ratio 17.5 8-20 Calcium 8.6 mg/dL 8.1-9.9 102 Total Protein 5.1 GM/DL Low 6.2-8.1 Albumin 2.4 GM/DL Low 3.6-5.4 Globulin 2.7 GM/DL 2-4 Albumin/Globulin Ratio 0.9 Low 1-3 Bilirubin Total 0.5 mg/dL 0.4-1.5 Alkaline Phosphatase 213 U/L High 40-122 Alt (SGPT) 13 U/L Low 14-54 Ast (Sgot) 20 U/L 12-42 Urinalysis W/Microscopic 04/14/2008 [facility] [place] [address] [phone] Appearance-Urine CLOUDY Specific [place]-Ur 1.029 1.010-1.030 Esterase-Urine 2+ Abnormal Negative Nitrite NEGATIVE Negative Nacibuhkmhcd-Li-WSV NEGATIVE Negative Protein-Urine 1+ Abnormal Negative PH-Urine 7.0 5-9 Blood-Urine NEGATIVE Negative Ketones-Urine 1+ Abnormal Negative Bilirubin-Ur NEGATIVE Negative Glucose-Urine NEGATIVE Negative WBC-Urine 15-20 Abnormal 0-5 RBC-Urine 0-2 0-2 Epith Cells-Ur MANY Bacteria-Urine 3+ Type And Screen 04/14/2008 [facility] Patient [place] [address] [phone] Antibody Screen NEGATIVE CBC With 04/14/2008 [facility] White Blood 16.3 CUMM High 4.8- 10.8 [place] [address] Count [phone] Red Cell Count 3.25 CUMM Low 4.2-5.4 Hemoglobin 10.9 g/dL Low 12.0-16.0 Hematocrit 31 % Low 35-47 Mean Corpuscular Volume 95 um3 79-97 Mean Corpuscular Hemoglob 34 pg High 27-31 Mean Corpuscular HGB Cone 36 g/dL 32-36 Redcell Distribution WDTH 13 % 10.5-15 Platelet Count 331 CUMM 150-450 Mean Platelet Volume 7.2 um3 Low 7.4-10.4 Polysegmented Neutrophil 88 % High 38-83 Lymphocyte 7 % Low 25-47 Monocyte 5 % 0-13 Absolute Neutrophil Count 14.3 RBC Morphology NORMAL Laboratory 04/04/2008 [facility] Genital For GRP FINAL: [address] [place] [address] B Strep Only NEGATIVE [phone] <SEE NOTE> DS3 02/22/2008 [facility] Amp[place] [address] Urine Screen DETECTED Detect [phone] Barbituates Urine Screen NONE DETECTED None Detect Benzodiazepine Ur Screen NONE DETECTED None Detect Cannabinoid Urine Screen POSITIVE Abnormal None Detect Cocaine Metabolites Urine NONE DETECTED None Detect Opiates Urine Screen NONE DETECTED None Detect PCP Urine Screen NONE DETECTED None Detect 104 Urinalysis W/Microscopic 02/22/2008 [facility] Ua Color YELLOW [place], [place] [address]399 [phone] Appearance-Urine CLEAR Specific [place]-Ur 1.006 Low 1.010-1.030 Esterase-Urine NEGATIVE Negative Nitrite NEGATIVE Negative Xantepkqsver-Pg-DNY NEGATIVE Negative Protein-Urine NEGATIVE Negative PH-Urine 6.0 5-9 Blood-Urine NEGATIVE Negative Ketones-Urine NEGATIVE Negative Bilirubin-Ur NEGATIVE Negative Glucose-Urine NEGATIVE Negative RBC-Urine NONE SEEN 0-2 Mucus Urine SMALL Epith Cells-Ur MODERATE Bacteria-Urine TRACE CBC With 02/22/2008 [facility] White Blood 12.5 CUMM High 4.8- 10.8 [place] [address] Count [phone] Red Cell Count 3.04 CUMM Low 4.2-5.4 Hemoglobin 10.5 g/dL Low 12.0-16.0 Hematocrit 30 % Low 35-47 Mean Corpuscular Volume 97 um3 79-97 Mean Corpuscular Hemoglob 35 pg High 27-31 Mean Corpuscular HGB Cone 36 g/dL 32-36 Redcell Distribution WDTH 13 % 10.5-15 Platelet Count 326 CUMM 150-450 Mean Platelet Volume 6.8 um3 Low 7.4-10.4 Polysegmented Neutrophil 72 % 38-83 Lymphocyte 17 % 5-47 Monocyte 6 % 0-13 Eosenophil 1 % 0-6 Atypical Lymph 4 % 0-6 Absolute Neutrophil Count 9.0 Anisocytosis SLIGHT Polychromasia SLIGHT Comp Metabolic Panel 02/22/2008 [facility] Sodium 138 mmol/L 135-145 [place], [place] [id number] [phone] Potassium 3.3 mmol/L Low 3.5-5.0 Chloride 111 mmol/L 101-111 Co2 (Carbon Dioxide) 22.0 mmol/L 22-32 Anion Gap 5.0 mmol/L 2-11 105 Glucose 73 mg/dL 70-100 106 BUN 6 mg/dL 6-24 Creatinine 0.5 mg/dL 0.5-1.4 One Over Creatinine 2.00 BUN/Creatinine Ratio 12.0 8-20 Calcium 8.6 mg/dL 8.1-9.9 107 Total Protein 6.3 GM/DL 6.2-8.1 Albumin 2.9 GM/DL Low 3.6-5.4 Globulin 3.4 GM/DL 2-4 Albumin/Globulin Ratio 0.9 Low 1-3 Bilirubin Total 0.4 mg/dL 0.4-1.5 Alkaline Phosphatase 105 U/L 40-122 Alt (SGPT) 13 U/L Low 14-54 Ast (Sgot) 18 U/L 12-42 Laboratory test 02/18/2008 [facility] Fasting 76 mg/dL 70- [address] [place] [address] Glucose [phone] 2HR Glucose 113 mg/dL 108 1HR Glucose 155 mg/dL 109 3HR Glucose 92 mg/dL 110 Laboratory test 12/16/2007 [facility] Rubella NON [place] [address] Screen [phone] Laboratory test 09/02/2007 [facility] Cytology normal [address] [place] [address] ---- <SEE [phone] NOTE> GC/ZHL On Thin 09/01/2007 [facility] GC On Thin NEGATIVE Negative [address] [place] [address] Prep Vial [phone] CHL On Thin Prep Vial NEGATIVE Negative 113 Manual Diff PN 09/01/2007 [facility] Polysegmented 42 % 38- 83 [place] [address] Neutrophil [phone] Band Neutrophil 1 % 0-8 Lymphocyte 40 % 5-47 Monocyte 8 % 0-13 Eosenophil 3 % 0-6 Atypical Lymph 6 % 0-6 Absolute Neutrophil Count 3.3 Anisocytosis SLIGHT 1 09/01/2007 [facility] White Blood Count 7.9 CUMM 4.8-10.8 [place] [address] [phone] Red Cell Count 4.09 CUMM Low 4.2-5.4 Hemoglobin 13.4 g/dL 12.0-16.0 Hematocrit 39 % 35-47 Mean Corpuscular Volume 95 um3 79-97 Mean Corpuscular Hemoglob 33 pg High 27-31 Mean Corpuscular HGB Cone 35 g/dL 32-36 Redcell Distribution WDTH 16 % High 10.5-15 Platelet Count 350 CUMM 150-450 Mean Platelet Volume 8.5 um3 7.4-10.4 RPR NON REACTIVE Nonreactive Hepatitis B Surface Ag NEGATIVE Negative 1 TS 09/01/2007 [facility] Patient [place] [address] [phone] Antibody Screen NEGATIVE Vad 09/01/2007 [facility] Vad Final NONREACTIVE Nonreactive [address] [place] [address] [phone] 1 SEE RESULT BELOW Name: KATALINA,CHARYLAN : [address]: Paulino ADAMS Acct: [id number] Unit: [id number] AGE: 27 Location: [facility] Re02/11/18 SEX: F Status: REG REF SPEC: [id number] AR[place]: 02/11/18-[address] [facility] [address]: Paulino ADAMS REQ: [id number] RECD: 02/11/18 STATUS: COMP _ SOURCE: CER/VAG/RE SPDESC: ORDERED: Grp B Strp Scrn COMMENTS: [id number] QUERIES: Is Patient Penicillin Allergic? N Is patient penicillin allergic and/or sensitivities needed? N Provider Requisition # [id number] Procedure Result Reported Site Group B Strep Culture Screen Final 02/13/18- 4742 ML Group B Strep Screen Negative * ML - Main Lab . END OF REPORT DEPARTMENT OF PATHOLOGY, [address] [place] [address] Tomer Espinal M.D. Director [facility] # [id number] 2 SEE RESULT BELOW Name: LINDA DARDEN : [address]: Petra Garay CNM Acct: [id number] Unit: [id number] AGE: 27 Location: [facility] Re12/31/17 SEX: F Status: REG REF SPEC: [id number] ARDEN: 12/31/17-[address] [facility] [address]: Petra Garay [facility] REQ: [id number] RECD: 12/31/17 STATUS: COMP _ SOURCE: VAGINAL SPDESC: ORDERED: Dayana,Yeast DNA, Trich DNA COMMENTS: [id number] Would you like to order Trichomonas Vaginalis testing? Y Procedure Result Reported Site Gardnerella/Yeast: Vaginal DNA Final 01/01/18- 0956 ML Organism 1 Negative Gardnerella Organism 2 Negative Jennifer The presence of G. vaginalis, although suggestive, is not diagnostic for bacterial vaginosis. Results should be interpreted in conjuction with other clinical and laboratory data available. Women with vaginal discharge should be evaluated for risk factors of cervicitis and pelvic inflammatory disease, toxic shock syndrome (S.aureus), and if present, evaluated for organisms not included in this assay such as N. gonorrhoeae, C. trachomatis, Mobiluncus, Mycoplasma and/or Prevotella. Mixed infections may occur. The performance of this test on patient specimens collected during or immediately after antimicrobial therapy is unknown. The presence or absence of Jennifer species, or G. vaginalis cannot be used as a test for therapeutic success or failure. Trichomonas: Vaginal DNA Probe Final 01/01/18- 0956 ML Organism 1 Negative Trichomonas CONTINUED ON NEXT PAGE DEPARTMENT OF PATHOLOGY, [address] [place] [address] Tomer Espinal M.D. Director [facility] # [id number] Patient: LINDA DARDEN [id number] (Continued) Specimen: [id number] Collected: 12/31/17-114 Received: 12/31/17-161 (Continued) Procedure Result Reported Site Trichomonas: Vaginal DNA Probe Final (continued) 01/01/18- 955 The presence or absence of T. vaginalis cannot be used as a test for therapeutic success or failure. * - Main Lab . END OF REPORT DEPARTMENT OF PATHOLOGY, [address] [place] [address] Tomer Espinal M.D. Director [facility] # [id number] 3 SCREEN NEGATIVE FOR OPEN NTD, DOWN SYNDROME AND TRISOMY 18. NT WAS USED IN THE RISK CALCULATIONS. 4 [place] rump length (CRL) was used to calculate gestational age. DEYSI, if provided, was not used for gestational age dating. 5 Reference Range: <2.50 IDD <1.90 TWINS <4.00 TWINS IDD <3.50 TRIPLETS <4.50 6 This test was performed using a kit that has not been cleared or approved by the FDA. The analytical performance characteristics of this test have been determined by [facility]. This test should not be used for diagnosis without confirmation by other medically established means. 7 The Sequential Integrated Screen combines WINSOME-A and hCG with or without a nuchal translucency measurement in the first trimester with AFP, unconjugated estriol, intact hCG and Inhibin A in the second trimester. This provides a useful screening test for detection of open neural tube defects, Down syndrome and Trisomy 18. It should be noted that normal results can never guarantee the of a normal baby and that 2 to 3 percent of newborns have some type of physical or mental defect, many of which are undetectable through any known diagnostic technique. Interpretation reviewed by: Zach Lee, Ph.D., [facility]. 8 For additional information, please refer to [email or web address] (This link is provided for informational/educational purposes only.) This is a screening test, not a diagnostic test. This risk assessment is based on demographic data provided by the ordering physician. Please notify the laboratory promptly if any data are incorrect. It has been observed that patients who smoke cigarettes during may have a slightly increased risk of having a false positive LAUREN screen for Down Syndrome or trisomy 18. If you have questions concerning this report: For clinical consultation, call ; For technical questions, call ext 4455; For recalculations, fax to [phone]. 9 REFERENCE VALUE Cutoff: 500 10 REFERENCE VALUE Cutoff: 200 11 REFERENCE VALUE Cutoff: 100 12 REFERENCE VALUE Cutoff: 150 13 Presumptive Positive Drug confirmation to follow. Presumptive Positive means that the screening method is positive, but the test needs to be run by a confirmatory method before being finalized. ADDITIONAL INFORMATION This report is intended for use in clinical monitoring or management of patients. It is not intended for use in employment-related testing. 14 REFERENCE VALUE Cutoff: 200 mg/L 15 Tylenol 3 16 Metabolite of codeine REFERENCE VALUE Cutoff: 100 17 Rubi Ludwig, MS Contin; Also a minor metabolite (10%) of codeine and can be seen in low concentrations (<2,000 ng/mL) with poppy seed ingestion. 18 Metabolite of morphine REFERENCE VALUE Cutoff: 100 19 Metabolite of heroin 20 Lortab, Taft, Vicodin; Also a very minor metabolite of codeine and impurity (<1%) of oxycodone. 21 Metabolite of hydrocodone 22 Metabolite of hydrocodone 23 Dilaudid, Exalgo; Also a metabolite of hydrocodone and a minor (<5%) metabolite of morphine. 24 Metabolite of hydromorphone REFERENCE VALUE Cutoff: 100 25 Endocet, Percocet, Oxycontin 26 Metabolite of oxycodone 27 Numorphan, Opana; Also a metabolite of oxycodone. 28 Metabolite of oxymorphone REFERENCE VALUE Cutoff: 100 29 Metabolite of oxymorphone 30 Actiq, Duragesic, Fentora 31 Metabolite of fentanyl 32 Demerol 33 Metabolite of meperidine 34 Narcan 35 Metabolite of naloxone REFERENCE VALUE Cutoff: 100 36 Dolophine 37 Metabolite of methadone 38 Darvon, Darvocet 39 Metabolite of propoxyphene 40 Tradol, Ultram, Ultracet 41 Metabolite of tramadol 42 Nucynta 43 Metabolite of tapentadol 44 Metabolite of tapentadol REFERENCE VALUE Cutoff: 100 45 Buprenex, Suboxone 46 Metabolite of buprenorphine 47 Metabolite of buprenorphine 48 Test detected the presence of norbuprenorphine and norbuprenorphine glucuronide which are metabolites of buprenorphine. Suspect use of buprenorphine within the past three days. ADDITIONAL INFORMATION This test was developed and its performance characteristics determined by [facility] in a manner consistent with CLIA requirements. This test has not been cleared or approved by the U.S. Food and Drug Administration. Test Performed by: [facility] - [address] [address] 49 Result in log IU/mL is Undetected. ADDITIONAL INFORMATION The quantification range of this assay is 15 to 100,000,000 IU/mL (1.18 log to 8.00 log IU/mL). Testing was performed using the carmen HCV test ([employer] with the carmen Platiza0 System. Test Performed by: [facility] - [address] [address] 50 REFERENCE VALUE Cutoff: 3.0 51 ADDITIONAL INFORMATION This report is intended for use in clinical monitoring and management of patients. It is not intended for use in employment-related testing. This test was developed and its performance characteristics determined by [facility] in a manner consistent with CLIA requirements. This test has not been cleared or approved by the U.S. Food and Drug Administration. Test Performed by: [facility] [address] [place] [address] 52 This patient's risk does not exceed the first trimester cut-off for Down syndrome or trisomy 18. The integrated screen calculation is awaiting the second trimester sample. NT WAS USED IN THE RISK CALCULATIONS. Thank you for submitting this patient's Part 1 specimen. These first trimester values will be incorporated with the second trimester values as part of the integrated testing process. Please submit the Part 2 specimen between 09/26/2017-11/20/2017 (15.0 and 22.9 weeks gestation) with 09/26/2017-10/09/2017 (15.0 - 16.9 weeks gestation) being optimal. When submitting Part 2, please include the following Specimen # from Part 1: [id number] 53 [place] rump length (CRL) was used to calculate gestational age. DEYSI, if provided, was not used for gestational age dating. 54 This test was performed using a kit that has not been cleared or approved by the FDA. The analytical performance characteristics of this test have been determined by [facility]. This test should not be used for diagnosis without confirmation by other medically established means. 55 INTERPRETATION REVIEWED BY: VISHAL WARD MD, DABMG, FACMG, FACB, MB(ASCP), MBS For additional information, please refer to [email or web address] (This link is being provided for informational/educational purposes only.) This is a screening test, not a diagnostic test. This risk assessment is based on demographic data provided by the ordering physician. Please notify the laboratory promptly if any data are incorrect. It has been observed that patients who smoke cigarettes during may have a slightly increased risk of having a false positive LAUREN screen for Down Syndrome or trisomy 18 If you have questions concerning this report: For clinical consultation, call ; For technical questions, call ext [phone]; For recalculations, fax to [phone]. 56 For additional information, please refer to [email or web address] (This link is being provided for informational/educational purposes only.) This is a screening test, not a diagnostic test. This risk assessment is based on demographic data provided by the ordering physician. Please notify the laboratory promptly if any data are incorrect. It has been observed that patients who smoke cigarettes during may have a slightly increased risk of having a false positive LAUREN screen for Down Syndrome or trisomy 18 If you have questions concerning this report: For clinical consultation, call ; For technical questions, call ext [phone]; For recalculations, fax to [phone]. 57 For additional information, please refer to [email or web address] (This link is being provided for informational/educational purposes only.) This is a screening test, not a diagnostic test. This risk assessment is based on demographic data provided by the ordering physician. Please notify the laboratory promptly if any data are incorrect. It has been observed that patients who smoke cigarettes during may have a slightly increased risk of having a false positive LAUREN screen for Down Syndrome or trisomy 18 If you have questions concerning this report: For clinical consultation, call ; For technical questions, call ext [phone]; For recalculations, fax to [phone]. 58 For additional information, please refer to [email or web address] (This link is being provided for informational/educational purposes only.) This is a screening test, not a diagnostic test. This risk assessment is based on demographic data provided by the ordering physician. Please notify the laboratory promptly if any data are incorrect. It has been observed that patients who smoke cigarettes during may have a slightly increased risk of having a false positive LAUREN screen for Down Syndrome or trisomy 18 If you have questions concerning this report: For clinical consultation, call ; For technical questions, call ext [phone]; For recalculations, fax to [phone]. 59 For additional information, please refer to [email or web address] (This link is being provided for informational/educational purposes only.) This is a screening test, not a diagnostic test. This risk assessment is based on demographic data provided by the ordering physician. Please notify the laboratory promptly if any data are incorrect. It has been observed that patients who smoke cigarettes during may have a slightly increased risk of having a false positive LAUREN screen for Down Syndrome or trisomy 18 If you have questions concerning this report: For clinical consultation, call ; For technical questions, call ext [phone]; For recalculations, fax to [phone]. 60 For additional information, please refer to [email or web address] (This link is being provided for informational/educational purposes only.) This is a screening test, not a diagnostic test. This risk assessment is based on demographic data provided by the ordering physician. Please notify the laboratory promptly if any data are incorrect. It has been observed that patients who smoke cigarettes during may have a slightly increased risk of having a false positive LAUREN screen for Down Syndrome or trisomy 18 If you have questions concerning this report: For clinical consultation, call ; For technical questions, call ext [phone]; For recalculations, fax to [phone]. 61 For additional information, please refer to [email or web address] (This link is being provided for informational/educational purposes only.) This is a screening test, not a diagnostic test. This risk assessment is based on demographic data provided by the ordering physician. Please notify the laboratory promptly if any data are incorrect. It has been observed that patients who smoke cigarettes during may have a slightly increased risk of having a false positive LAUREN screen for Down Syndrome or trisomy 18 If you have questions concerning this report: For clinical consultation, call ; For technical questions, call ext [phone]; For recalculations, fax to [phone]. 62 For additional information, please refer to [email or web address] (This link is being provided for informational/educational purposes only.) This is a screening test, not a diagnostic test. This risk assessment is based on demographic data provided by the ordering physician. Please notify the laboratory promptly if any data are incorrect. It has been observed that patients who smoke cigarettes during may have a slightly increased risk of having a false positive LAUREN screen for Down Syndrome or trisomy 18 If you have questions concerning this report: For clinical consultation, call ; For technical questions, call ext [phone]; For recalculations, fax to [phone]. 63 For additional information, please refer to [email or web address] (This link is being provided for informational/educational purposes only.) This is a screening test, not a diagnostic test. This risk assessment is based on demographic data provided by the ordering physician. Please notify the laboratory promptly if any data are incorrect. It has been observed that patients who smoke cigarettes during may have a slightly increased risk of having a false positive LAUREN screen for Down Syndrome or trisomy 18 If you have questions concerning this report: For clinical consultation, call ; For technical questions, call ext [phone]; For recalculations, fax to [phone]. 64 For additional information, please refer to [email or web address] (This link is being provided for informational/educational purposes only.) This is a screening test, not a diagnostic test. This risk assessment is based on demographic data provided by the ordering physician. Please notify the laboratory promptly if any data are incorrect. It has been observed that patients who smoke cigarettes during may have a slightly increased risk of having a false positive LAUREN screen for Down Syndrome or trisomy 18 If you have questions concerning this report: For clinical consultation, call ; For technical questions, call ext [phone]; For recalculations, fax to [phone]. 65 For additional information, please refer to [email or web address] (This link is being provided for informational/educational purposes only.) This is a screening test, not a diagnostic test. This risk assessment is based on demographic data provided by the ordering physician. Please notify the laboratory promptly if any data are incorrect. It has been observed that patients who smoke cigarettes during may have a slightly increased risk of having a false positive LAUREN screen for Down Syndrome or trisomy 18 If you have questions concerning this report: For clinical consultation, call ; For technical questions, call ext [phone]; For recalculations, fax to [phone]. 66 For additional information, please refer to [email or web address] (This link is being provided for informational/educational purposes only.) This is a screening test, not a diagnostic test. This risk assessment is based on demographic data provided by the ordering physician. Please notify the laboratory promptly if any data are incorrect. It has been observed that patients who smoke cigarettes during may have a slightly increased risk of having a false positive LAUREN screen for Down Syndrome or trisomy 18 If you have questions concerning this report: For clinical consultation, call ; For technical questions, call ext [phone]; For recalculations, fax to [phone]. 67 For additional information, please refer to [email or web address] (This link is being provided for informational/educational purposes only.) This is a screening test, not a diagnostic test. This risk assessment is based on demographic data provided by the ordering physician. Please notify the laboratory promptly if any data are incorrect. It has been observed that patients who smoke cigarettes during may have a slightly increased risk of having a false positive LAUREN screen for Down Syndrome or trisomy 18 If you have questions concerning this report: For clinical consultation, call ; For technical questions, call ext [phone]; For recalculations, fax to [phone]. 68 For additional information, please refer to [email or web address] (This link is being provided for informational/educational purposes only.) This is a screening test, not a diagnostic test. This risk assessment is based on demographic data provided by the ordering physician. Please notify the laboratory promptly if any data are incorrect. It has been observed that patients who smoke cigarettes during may have a slightly increased risk of having a false positive LAUREN screen for Down Syndrome or trisomy 18 If you have questions concerning this report: For clinical consultation, call ; For technical questions, call ext [phone]; For recalculations, fax to [phone]. 69 For additional information, please refer to [email or web address] (This link is being provided for informational/educational purposes only.) This is a screening test, not a diagnostic test. This risk assessment is based on demographic data provided by the ordering physician. Please notify the laboratory promptly if any data are incorrect. It has been observed that patients who smoke cigarettes during may have a slightly increased risk of having a false positive LAUREN screen for Down Syndrome or trisomy 18 If you have questions concerning this report: For clinical consultation, call ; For technical questions, call ext [phone]; For recalculations, fax to [phone]. 70 For additional information, please refer to [email or web address] (This link is being provided for informational/educational purposes only.) This is a screening test, not a diagnostic test. This risk assessment is based on demographic data provided by the ordering physician. Please notify the laboratory promptly if any data are incorrect. It has been observed that patients who smoke cigarettes during may have a slightly increased risk of having a false positive LAUREN screen for Down Syndrome or trisomy 18 If you have questions concerning this report: For clinical consultation, call ; For technical questions, call ext [phone]; For recalculations, fax to [phone]. 71 For additional information, please refer to [email or web address] (This link is being provided for informational/educational purposes only.) This is a screening test, not a diagnostic test. This risk assessment is based on demographic data provided by the ordering physician. Please notify the laboratory promptly if any data are incorrect. It has been observed that patients who smoke cigarettes during may have a slightly increased risk of having a false positive LAUREN screen for Down Syndrome or trisomy 18 If you have questions concerning this report: For clinical consultation, call ; For technical questions, call ext [phone]; For recalculations, fax to [phone]. 72 For additional information, please refer to [email or web address] (This link is being provided for informational/educational purposes only.) This is a screening test, not a diagnostic test. This risk assessment is based on demographic data provided by the ordering physician. Please notify the laboratory promptly if any data are incorrect. It has been observed that patients who smoke cigarettes during may have a slightly increased risk of having a false positive LAUREN screen for Down Syndrome or trisomy 18 If you have questions concerning this report: For clinical consultation, call ; For technical questions, call ext [phone]; For recalculations, fax to [phone]. 73 For additional information, please refer to [email or web address] (This link is being provided for informational/educational purposes only.) This is a screening test, not a diagnostic test. This risk assessment is based on demographic data provided by the ordering physician. Please notify the laboratory promptly if any data are incorrect. It has been observed that patients who smoke cigarettes during may have a slightly increased risk of having a false positive LAUREN screen for Down Syndrome or trisomy 18 If you have questions concerning this report: For clinical consultation, call ; For technical questions, call ext [phone]; For recalculations, fax to [phone]. 74 For additional information, please refer to [email or web address] (This link is being provided for informational/educational purposes only.) This is a screening test, not a diagnostic test. This risk assessment is based on demographic data provided by the ordering physician. Please notify the laboratory promptly if any data are incorrect. It has been observed that patients who smoke cigarettes during may have a slightly increased risk of having a false positive LAUREN screen for Down Syndrome or trisomy 18 If you have questions concerning this report: For clinical consultation, call ; For technical questions, call ext [phone]; For recalculations, fax to [phone]. 75 For additional information, please refer to [email or web address] (This link is being provided for informational/educational purposes only.) This is a screening test, not a diagnostic test. This risk assessment is based on demographic data provided by the ordering physician. Please notify the laboratory promptly if any data are incorrect. It has been observed that patients who smoke cigarettes during may have a slightly increased risk of having a false positive LAUREN screen for Down Syndrome or trisomy 18 If you have questions concerning this report: For clinical consultation, call ; For technical questions, call ext [phone]; For recalculations, fax to [phone]. 76 For additional information, please refer to [email or web address] (This link is being provided for informational/educational purposes only.) This is a screening test, not a diagnostic test. This risk assessment is based on demographic data provided by the ordering physician. Please notify the laboratory promptly if any data are incorrect. It has been observed that patients who smoke cigarettes during may have a slightly increased risk of having a false positive LAUREN screen for Down Syndrome or trisomy 18 If you have questions concerning this report: For clinical consultation, call ; For technical questions, call ext [phone]; For recalculations, fax to [phone]. 77 For additional information, please refer to [email or web address] (This link is being provided for informational/educational purposes only.) This is a screening test, not a diagnostic test. This risk assessment is based on demographic data provided by the ordering physician. Please notify the laboratory promptly if any data are incorrect. It has been observed that patients who smoke cigarettes during may have a slightly increased risk of having a false positive LAUREN screen for Down Syndrome or trisomy 18 If you have questions concerning this report: For clinical consultation, call ; For technical questions, call ext [phone]; For recalculations, fax to [phone]. 78 For additional information, please refer to [email or web address] (This link is being provided for informational/educational purposes only.) This is a screening test, not a diagnostic test. This risk assessment is based on demographic data provided by the ordering physician. Please notify the laboratory promptly if any data are incorrect. It has been observed that patients who smoke cigarettes during may have a slightly increased risk of having a false positive LAUREN screen for Down Syndrome or trisomy 18 If you have questions concerning this report: For clinical consultation, call ; For technical questions, call ext [phone]; For recalculations, fax to [phone]. 79 For additional information, please refer to [email or web address] (This link is being provided for informational/educational purposes only.) This is a screening test, not a diagnostic test. This risk assessment is based on demographic data provided by the ordering physician. Please notify the laboratory promptly if any data are incorrect. It has been observed that patients who smoke cigarettes during may have a slightly increased risk of having a false positive LAUREN screen for Down Syndrome or trisomy 18 If you have questions concerning this report: For clinical consultation, call ; For technical questions, call ext [phone]; For recalculations, fax to [phone]. 80 For additional information, please refer to [email or web address] (This link is being provided for informational/educational purposes only.) This is a screening test, not a diagnostic test. This risk assessment is based on demographic data provided by the ordering physician. Please notify the laboratory promptly if any data are incorrect. It has been observed that patients who smoke cigarettes during may have a slightly increased risk of having a false positive LAUREN screen for Down Syndrome or trisomy 18 If you have questions concerning this report: For clinical consultation, call ; For technical questions, call ext [phone]; For recalculations, fax to [phone]. 81 For additional information, please refer to [email or web address] (This link is being provided for informational/educational purposes only.) This is a screening test, not a diagnostic test. This risk assessment is based on demographic data provided by the ordering physician. Please notify the laboratory promptly if any data are incorrect. It has been observed that patients who smoke cigarettes during may have a slightly increased risk of having a false positive LAUREN screen for Down Syndrome or trisomy 18 If you have questions concerning this report: For clinical consultation, call ; For technical questions, call ext [phone]; For recalculations, fax to [phone]. 82 For additional information, please refer to [email or web address] (This link is being provided for informational/educational purposes only.) This is a screening test, not a diagnostic test. This risk assessment is based on demographic data provided by the ordering physician. Please notify the laboratory promptly if any data are incorrect. It has been observed that patients who smoke cigarettes during may have a slightly increased risk of having a false positive LAUREN screen for Down Syndrome or trisomy 18 If you have questions concerning this report: For clinical consultation, call ; For technical questions, call ext [phone]; For recalculations, fax to [phone]. 83 For additional information, please refer to [email or web address] (This link is being provided for informational/educational purposes only.) This is a screening test, not a diagnostic test. This risk assessment is based on demographic data provided by the ordering physician. Please notify the laboratory promptly if any data are incorrect. It has been observed that patients who smoke cigarettes during may have a slightly increased risk of having a false positive LAUREN screen for Down Syndrome or trisomy 18 If you have questions concerning this report: For clinical consultation, call ; For technical questions, call ext [phone]; For recalculations, fax to [phone]. 84 For additional information, please refer to [email or web address] (This link is being provided for informational/educational purposes only.) This is a screening test, not a diagnostic test. This risk assessment is based on demographic data provided by the ordering physician. Please notify the laboratory promptly if any data are incorrect. It has been observed that patients who smoke cigarettes during may have a slightly increased risk of having a false positive LAUREN screen for Down Syndrome or trisomy 18 If you have questions concerning this report: For clinical consultation, call ; For technical questions, call ext [phone]; For recalculations, fax to [phone]. 85 For additional information, please refer to [email or web address]/faq/FAQ89 (This link is being provided for informational/educational purposes only.) This is a screening test, not a diagnostic test. This risk assessment is based on demographic data provided by the ordering physician. Please notify the laboratory promptly if any data are incorrect. It has been observed that patients who smoke cigarettes during may have a slightly increased risk of having a false positive LAUREN screen for Down Syndrome or trisomy 18 If you have questions concerning this report: For clinical consultation, call ; For technical questions, call ext [phone]; For recalculations, fax to [phone]. 86 [id number] Therapeutic target for the treatment of diabetes mellitus patients is <7% HBA1C, and in selective patients <6.0%. Please refer to [place] [employer] diabetic care guidelines for further information. 88 [id number] Warning: A positive result is not useful for establishing a diagnosis of syphilis. In most situations, such a result may reflect a prior treated infection; a negative result can exclude a diagnosis of syphilis except for incubating or early primary disease. 90 It is recognized that currently available assays for the detection of antibodies to HIV-1 and/or HIV-2 may not detect all infected individuals. HIV antibodies may be undetectable in some stages of the infection and in some clinical conditions. The performance of this assay has not been established for populations of infants or children. Assayed by Chemiluminescence Microparticle Immunoassay on the Siemens Advia Centaur CP. Values obtained with different methods or kits cannot be used interchangeably.The diagnostic specificity of the ADVIA Centaur 1/O/2 Enhanced assay in the low risk population was 99.90% (6052/6058) with a 95% confidence interval of 99.78 to 99.96%. 91 ADDITIONAL INFORMATION Testing performed by Inductively Coupled Plasma-Mass Spectrometry (ICP-MS). This test was developed and its performance characteristics determined by [facility] in a manner consistent with CLIA requirements. This test has not been cleared or approved by the U.S. Food and Drug Administration. 92 Test Performed by: [facility] [address] [place] [address] 93 SEE RESULT BELOW Name: LINDA DARDEN : [address]: Petra Garay [facility] Acct: [id number] Unit: [id number] AGE: 27 Location: [facility] Re08/07/17 SEX: F Status: REG REF SPEC: [id number] AR[place]: 08/07/17-[address] [facility] [address]: Petra Garay [facility] REQ: [id number] RECD: 08/07/17 STATUS: COMP _ SOURCE: URINE SPDESC: ORDERED: Urine Culture COMMENTS: [id number] Urine Source: Random Procedure Result Reported Site Urine Culture Final 08/08/17- 1516 ML No Growth (<1,000 CFU/mL) * - [facility] . END OF REPORT DEPARTMENT OF PATHOLOGY, [address] [place] [address] Tomer Espinal M.D. Director [facility] # [id number] 94 SEE RESULT BELOW Name: KEESHA DARDENRYLAN : [address]: Petra Garay CNM Acct: [id number] Unit: [id number] AGE: 27 Location: [facility] Re08/07/17 SEX: F Status: REG REF SPEC: [id number] ARDEN: 08/07/17-[address] [facility] [address]: Petra Garay CNM REQ: [id number] RECD: 08/07/17 STATUS: SOUT _ ORDERED: TP IMAGE ANAL COMMENTS: [id number] Negative for Intraepithelial lesion or Malignancy A. Ectocervical/Endocervical Specimen Adequacy: Satisfactory of evaluation Transformation zone component not identified Patient Information: HPV: Thin Layer Pap Test w/reflex to high risk HPV RNA testing when ASCUS Actual Specimen Date: 08/07/17 Last Menstrual Date: 06/10/17 Spec Date if unknown: unknown ?: Y Post Menopausal?: N Hysterectomy?: N Previous Abnormal Pap Smears?:N Signed (signature on file) VIRGILIO Cormier(ASCP) 08/10 1219 This Pap test was evaluated with the assistance of the Aviir Test Imaging System. Due to cytologic findings at the animal nursery worker microscope, comprehensive manual rescreening by a Roll Up Guider Operator may be required. The Pap Smear is a screening test designed to aid in the detection of premalignant and malignant conditions of the uterine cervix. It is not a diagnostic procedure and should not be used as the sole means of detecting cervical cancer. Both false- positive and false- negative reports do occur. Depending on your risk status, a Pap smear should be obtained and evaluated every 1-3 years. END OF REPORT DEPARTMENT OF PATHOLOGY, [address] [place] [address] Tomer Espinal M.D. Director [facility] # [id number] 95 ---- [facility]: [facility]02/09 [facility] TIME: 1346 Specimen Inquiry RUN USER: INTERFACE -- Name: LINDA DARDEN Status: REG REF Re09/27/09 Age/Sex: 19/F Unit#: [id number] Location: [facility]. : [birth year] -- Specimen: [id number] SOUT Spec Date: 09/27/[address]: Susan finch MD Spec Type: CYTOLOGY Received: 10/02/09 Copies to: SOURCE ECTOCERVICAL/ENDOCERVICAL Thin Prep with Reflex HPV Test PATIENT INFORMATION ACTUAL COLLECTION DATE: 09/27/09 ? No POST MENOPAUSAL? No HYSTERECTOMY? No PREVIOUS ABNORMAL PAP SMEARS Yes LAST MENSTRUAL PERIOD: 09/03/09 DATE OF PRIOR SPECIMEN: 04/30/09 PATIENT HISTORY: Atypical Squamous cells of undetermined significance ADEQUACY OF SPECIMEN Satisfactory for evaluation * Transformation zone component identified * DIAGNOSIS NEGATIVE FOR INTRAEPITHELIAL LESION OR MALIGNANCY * Reactive cellular changes associated with * Inflammation (includes typical repair) * This Pap test was evaluated with the assistance of the GoChongoPrep Pap Test Imaging System. Due to cytologic findings at the animal nursery worker microscope, comprehensive manual rescreening by a Roll Up Guider Operator was required. The Pap Smear is a screening test designed to aid in the detection of premalign ant and malignant conditions of the uterine cervix. It is not a diagnostic procedure a nd should not be used as the sole means of detecting cervical cancer. Both false- positiv e and false-negative reports do occur. Depending on your risk status, a Pap smear marlene uld be obtained and evaluated every one to three years. -- DEPARTMENT OF PATHOLOGY, [address] [place] [address] [facility] Permit #[id number] Eveline So M.D. Senior Research Project Manager Dir gretta -- -- RUN DATE: 10/02/09 [facility] NMI LIVE PAGE 2 RUN TIME: 0349 Specimen Inquiry RUN USER: INTERFACE -- Name: LINDA DARDEN Status: REG REF Re09/27/09 Age/Sex: 19/F Unit#: [id number] Location: [facility] : 90 -- -- CONTINUED -- Initial evaluation performed by Norma BUTCHER([facility]) 10/02/09 Final Interpretation electronically signed by: TOMER ESPINAL MD 10/02/09 13 45 -- -- DEPARTMENT OF PATHOLOGY, [address] [place] [address] [facility] Permit #[id number] Eveline So M.D. Senior Research Project Manager gretta -- 96 ---- RUN DATE: 06/12/09 [facility] NMI LIVE PAGE 1 RUN TIME: 1517 Specimen Inquiry RUN USER: INTERFACE -- Name: KEESHA DARDENAWAELVIS Status: REG REF Re06/08/09 Age/Sex: 18/F Unit#: [id number] [facility] [birth year] -- Specimen: [id number] SOUT Spec Date: 06/08/[address]: Susan finch MD Spec Type: SURGICAL P Received: 06/11/09-1011 Copies to: CYTOLOGY SPECIMEN 1) CERVICAL BIOPSY 2) ENDOCERVICAL CURETTINGS HISTORY PRE-OP DIAGNOSIS: Atypical squamous cells of undetermined significance, p ositive human papilloma virus GROSS DESCRIPTION 1) Specimen received in formalin labelled Linda Darden Cervical Biopsy and consists of multiple, cabrales-mclaughlin and focally hemorrhagic, soft tissue fragments measuring 0.7 x 0.5 x 0.2 cm. in aggregate. Submitted entirely, one cassette. 2) Specimen received in formalin labelled AMANUEL Mcclure and consists of multiple, cabrales and hemorrhagic, mucoid fragments measuring 1.8 x 0.7 x 0.5 cm. in aggregate. Submitted entirely, one cassette. DIAGNOSIS 1) Uterus, cervix, biopsy: A) Low grade squamous intraepithelial lesion (mild dysplasia with HPV effect). B) Extensive squamous metaplasia. 2) Uterus, endocervix, curettage: A) Benign endocervical glandular mucosa and inflamed mucus. B) No evidence of neoplasia or dysplasia identified. Signed Electronically by: TOMER ESPINAL MD 06/12/09 1515 -- -- DEPARTMENT OF PATHOLOGY, [address] [place] [address] [facility] Permit #[id number] Tomer Espinal M.D. Director Bianca Still M.D. Senior Research Project Manager Dir glynn -- 97 ---- RUN DATE: 05/07/09 [facility] NMI LIVE PAGE 1 RUN TIME: 1409 Specimen Inquiry RUN USER: INTERFACE -- Name: LINDA DARDEN Status: REG REF Re04/30/09 Age/Sex: 18/F Unit#: [id number] Location: [facility] : 90 -- Specimen: [id number] SOUT Spec Date: 04/30/[address]: Susan finch MD Spec Type: CYTOLOGY Received: 04/30/09-1340 Copies to: SOURCE ECTOCERVICAL/ENDOCERVICAL Thin Prep with Reflex HPV Test PATIENT INFORMATION ACTUAL COLLECTION DATE: 04/30/09 LAST MENSTRUAL PERIOD: 02/12/09 DATE OF PRIOR SPECIMEN: 09/02/07 ADEQUACY OF SPECIMEN Satisfactory for evaluation * Transformation zone component identified * Predominance of mucus * DIAGNOSIS EPITHELIAL CELL ABNORMALITIES * Squamous cell * Atypical squamous cells * Of undetermined significance (ASC-US) * NOTE Specimen sent to [facility], [place], [place] for high risk HPV DNA testing on 05/01/09 at 1600 by DB. ADDENDUM Addendum #1 Entered: 05/03/09-1442 Patricia Human Papilloma Virus test results received with preparation and diagnosis completed by [facility]. Results: THIS IS A RETEST TO BE TESTED ON 05/07/2009 High Risk (HPV types 16, 18, 31, 33, 35, 39, 45, 51, 52, 56, 58, 59, 68) -- DEPARTMENT OF PATHOLOGY, [address] [place] [address] [facility] Permit #[id number] Tomer Espinal M.D. Director Bianca Still M.D. Senior Research Project Manager Dir glynn -- -- RUN DATE: 05/07/09 [facility] NMI LIVE PAGE 2 RUN TIME: 1409 Specimen Inquiry RUN USER: INTERFACE -- Name: LINDA DARDEN Status: REG REF Re04/30/09 Age/Sex: 18/F Unit#: [id number] Location: [facility] : 90 -- -- CONTINUED -- ADDENDUM (Continued) Addendum Review Huyen TAVERA([facility]) 05/03/09 -- Addendum #2 Entered: 05/07/09-1299 Patricia Human Papilloma Virus test results received with preparation and diagnosis completed by [facility], [place], [place]. Results: POSITIVE High Risk (HPV types 16, 18, 31, 33, 35, 39, 45, 51, 52, 56, 58, 59, 68) Educational Note: Women with the cytologic diagnosis of Atypical Squamous Cells of Undetermined Significance (ASC-US) who test positive for high risk, oncogenic HPV are at 10-20% risk of underlying TIFFANY 2 or higher lesions. Colposcopy is recommended in this situation. Women with ASC-US who test negative for high-risk, oncogenic HPV are at extremely low risk for underlying TIFFANY 2 or higher lesions. Repeat Pap smear at 12 months is recommended in this situation. Ref: J. Natl. Cancer Inst. 2001;93:293-299 RACHEL 2002;287:3200-7291 Addendum Review Huyen TAVERA(ASCP) 05/07/09 -- This Pap test was evaluated with the assistance of the GoChongoPrep Pap Test Imaging System. Due to cytologic findings at the animal nursery worker microscope, comprehensive manual rescreening by a Roll Up Guider Operator was required. -- DEPARTMENT OF PATHOLOGY, [address] [place] [address] [facility] Permit #[id number] Tomer Espinal M.D. Director Bianca Still M.D. Senior Research Project Manager Dir gretta -- -- RUN DATE: 05/07/09 [facility] NMI LIVE PAGE 3 RUN TIME: 1409 Specimen Inquiry RUN USER: INTERFACE -- Name: LINDA DARDEN Status: REG REF Re04/30/09 Age/Sex: 18/F Unit#: [id number] Location: [facility]. : 90 -- -- CONTINUED -- The Pap Smear is a screening test designed to aid in the detection of premalign ant and malignant conditions of the uterine cervix. It is not a diagnostic procedure a nd should not be used as the sole means of detecting cervical cancer. Both false- positiv e and false-negative reports do occur. Depending on your risk status, a Pap smear marlene uld be obtained and evaluated every one to three years. Initial evaluation performed by Norma BUTCHER(ASCP) 05/01/09 Final Interpretation electronically signed by: BIANCA STILL 05/01/09 1032 -- -- DEPARTMENT OF PATHOLOGY, [address] [place] [address] [facility] Permit #[id number] Tomer Espinal M.D. Director Bianca Still M.D. Senior Research Project Manager Dir gretta -- [address] MOTT BY CULLEN at 0925 on 12/01/08. Results read back accurately. RESULTS SENT TO [facility] INFECTION CONTROL NURSE ON 12/01/08 AT 0927 BY CULLEN. 99 METH RESIST S. AUREUS (MRSA) NORMAL TELMA 10 Anion gap measurement may be of limited value in the 0 presence of any alkalosis, especially in a combined acid base disorder. . 10 Note change in reference range as of 12/23/07. The 1 change was based on recommendations from the [place] [employer]. 10 Please note change in reference range effective 07 2 . 10 FINAL: NEGATIVE FOR GROUP B STREPTOCOCCUS 3 10 4 THE URINE SPECIMEN WAS TESTED AT THE LISTED CUTOFFS: DRUG CLASS TEST LEVEL (NG/ML) AMPHETAMINES 300 BARBITUATES 200 BENZODIAZEPINE METABOLITES 200 COCAINE METABOLITES 300 CANNABINOIDS 25 OPIATES 200 PCP 25 THIS IS A SCREENING PROCEDURE. POSITIVE RESULTS ARE NOT CONFIRMED. SPECIMEN WAS RECEIVED WITHOUT CHAIN OF CUSTODY. RESULTS SHOULD BE USED FOR MEDICAL PURPOSES ONLY. . 10 Anion gap measurement may be of limited value in the 5 presence of any alkalosis, especially in a combined acid base disorder. . 10 Note change in reference range as of 12/23/07. The 6 change was based on recommendations from the [place] [employer]. 10 Please note change in reference range effective 07 7 . 10 REFERENCE RANGE: 5-15 MG/DL ABOVE FASTING 8 10 REFERENCE RANGE: 20-50 MG/DL ABOVE FASTING 9 11 REFERENCE RANGE: FASTING OR 10 MG/DL BELOW 0 11 ---- 1 RUN DATE: 09/02/07 [facility] NMI LIVE PAGE 1 RUN TIME: 1437 Specimen Inquiry RUN USER: INTERFACE -- Name: LINDA DARDEN Status: REG REF Re09/01/07 Age/Sex: 17/F Unit#: [id number] Location: [facility] : 90 -- Specimen: [id number] [facility] Spec Date: 09/01/07 [facility] Dr: Patricia Cervantes ANALYTICS CONSULTANT Spec Type: CYTOLOGY Received: 09/02/07-1143 Copies to: SOURCE ECTOCERVICAL/ENDOCERVICAL Thin Prep with Reflex HPV Test PATIENT INFORMATION ACTUAL COLLECTION DATE: 09/01/07 ? YES LAST MENSTRUAL PERIOD: 05/30/07 PATIENT HISTORY: Prior Elsewhere ADEQUACY OF SPECIMEN Satisfactory for evaluation * Transformation zone component identified * DIAGNOSIS NEGATIVE FOR INTRAEPITHELIAL LESION OR MALIGNANCY * This Pap test was evaluated with the assistance of the ThinPrep Pap Test Imaging System. The Pap Smear is a screening test designed to aid in the detection of premalign ant and malignant conditions of the uterine cervix. It is not a diagnostic procedure a nd should not be used as the sole means of detecting cervical cancer. Both false- positive and false-negative reports do occur. Depending on your risk status, a Pap smear marlene uld be obtained and evaluated every one to three years. Final Interpretation electronically signed by: Huyen TAVERA([facility]) 09/02/07 1437 -- -- DEPARTMENT OF PATHOLOGY, [address] [place] [address] [facility] Permit #[id number] Tomer Espinal M.D. Director of Laboratories -- 11 . 2 A negative result does not preclude the presence of a C.trachomatis or N.gonorrhoeae infection because results are dependent on adequate specimen collection, absence of inhibitors, and sufficient rRNA to be detected. Test results may be affected by improper specimen collection, improper specimen storage, technical error, or specimen mixup. . 11 . 3 A negative result does not preclude the presence of a C.trachomatis or N.gonorrhoeae infection because results are dependent on adequate specimen collection, absence of inhibitors, and sufficient rRNA to be detected. Test results may be affected by improper specimen collection, improper specimen storage, technical error, or specimen mixup. . 11 4 FINAL INTERPRETATION: No HIV antibody is detected. . This information has been disclosed to you from confidential records which are protected by [place] State law. State law prohibits you from making further disclosure of this information without the specific written consent of the person to whom it pertains, or as otherwise permitted by law. Any unauthorized further disclosure in violation of state law may result in a fine or long-term sentence or both. General authorization for the release of medical or other information is not, except in limited circumstances set forth in Part 63, Title 10, of [facility], sufficient authorization for further disclosure. Disclosure of confidential HIV information that occurs as the result of a general authorization for the release of medical or other information will be in violation of the state law and may result in a fine or a long-term sentence. . Procedures Date Code Description Status 03/10/2018 09588 Obstetric Care Routine Completed 03/08/2018 89370 Echography Uterus Limited Completed 03/08/2018 75647 Non-Stress Test Completed 03/05/2018 13382 Echography Uterus Limited Completed 03/05/2018 16438 Non-Stress Test Completed 02/26/2018 43738 Echography Uterus Limited Completed 02/26/2018 37247 Non-Stress Test Completed 02/19/2018 53826 Biophysical Profile W/ NST Completed 02/19/2018 10952 Echography Uterus Follow-Up Or Repeat Completed 02/19/2018 91723 Non-Stress Test Completed 02/11/2018 74431 Echography Uterus Limited Completed 02/11/2018 37272 Non-Stress Test Completed 02/05/2018 82680 Doppler Velocimetry Umbilical Artery Completed 02/05/2018 75767 Biophysical Profile Without Non Stress Test Completed 02/05/2018 97633 Echography Uterus Follow-Up Or Repeat Completed 01/07/2018 68972 Echography Uterus Follow-Up Or Repeat Completed 10/28/2017 70612 Echography Uterus Complete Completed 09/11/2017 15001 Nuchal Translucency Ultrasound /First Gestation Completed 08/07/2017 59166 OB Ultrasound First Trimester Completed 06/08/2009 46936 Colposcopy W/Biopsy Cervix/Endocervical Curettage Completed 11/28/2008 38743 I & D Abscess Vulva Or Perineal Completed 04/28/2008 80250 Obstetric Care Routine Completed 03/20/2008 56266 Echography Uterus Follow-Up Or Repeat Completed 02/23/2008 78509 Non-Stress Test Completed 02/03/2008 59130 Non-Stress Test Completed 12/16/2007 93679 Echography Uterus Complete Completed 12/16/2007 03333 Echography Uterus Complete Completed 10/14/2007 37139 Nuchal Translucency Ultrasound /First Gestation Completed 10/14/2007 44727 Nuchal Translucency Ultrasound /First Gestation Completed 09/14/2007 70209 Echography Uterus Limited Completed 09/14/2007 27422 OB Ultrasound First Trimester Completed 09/01/2007 01204 OB Ultrasound First Trimester Completed 09/01/2007 54350 OB Ultrasound First Trimester Completed Encounters Type Date Location Provider Dx Diagnosis Office Visit 09/27/2009 [facility] Susan Mott, 622.11 Mild Dysplasia 2:40p M.D. Cervix Office Visit 06/08/2009 [facility] Susan Mott, 795.02 Pap Smear Atypical 10:00a MDane Squamous Cell High Grade (Asc-H) 305.1 Tobacco Use Disorder V72.40 Test Unconfirm Office Visit 04/30/2009 8:00a [facility] Susan Mott, V72.31 Routine Chair Inspector And Leveler M.D. 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 Threatened Episode Of Care Unspec Or N/A Office Visit 02/23/2008 1:14p Delivery Triny Maki 644.00 Premature Labor CNM Threatened Episode Of Care Unspec Or N/A Plan of Treatment 11/28/2008 - Tom Ozuna M.D.616.10 Vaginitis & Vulvovaginitis UnspecComments:CHECK HCG , IF NEGATIVE WILL STARTT LEVAQUINCE[place] CTFollow up: Followup:. (Follow up)Follow up PRN
--- OUTSIDE RECORDS SUMMARY | 2018-09-18 11:34 | XMS REPORT | Continuity of Care Document ---
:1990 External Reference #:[id number] Author Name Erendira Gonzales Care Team Providers Name Role Phone Tran Christine MD Care Team Information Log Buyer Unavailable Payers Date Identification Numbers Payment Provider Subscriber Policy Number: [id number] [facility] Linda Darden PayID: [id number] [address] [place] [address] Policy Number: [id number] Medicaid SEVEN Darden PayID: [id number] [address] [place] [address] Advance Directives Description No Information Available Problems [...] Diabetes, Type 2 Paternal Grandfather due to [place] () Paternal Grandmother Unknown Maternal Grandfather due [...] 08/14/2017 - 5mg every 6 hours as [facility] 08/26/2017 Tablets needed for nausea Janae take [...] Maki, 11/11/2007 - 0.8% Cream applicator per [facility] 02/25/2008 instructions. Vitamins 1 PO qd 90tabs Patricia Hayden, 09/01/2007 - Tablets ANP-C 04/29/2009 Phenergan 1 Tablet PO Q6HRS 30tabs Mayra Pacheco, 09/01/2007 - 25mg Tablets prn Nausea CN 02/25/2008 Immunizations CPT Code Status Date Vaccine Lot # [id number] Given 02/26/2018 Influenza Vaccine Quadrivalent Preser/Antibiotic [id number] Free [place] Use [id number] Given 12/25/2017 Tetnus, Diptheria Toxoids And Acellular Pertussis, 4P9CL PT > 7Yrs Old [address] Given 02/25/2008 Influenza Virus Vaccine 3Years Or Older Vital Signs Date Vital Result Comment 04/20/2018 8:00am BP Systolic 112 mmHg BP Diastolic 70 mmHg Height 60.5 inches 5'0.50" Weight 116.00 lb BMI (Body Mass Index) 22.3 kg/m2 Last Menstrual Period 4792530 2 Parity 2 08/07/2017 9:48am BP Systolic 104 mmHg BP Diastolic 62 mmHg Height 60.5 inches 5'0.50" Weight 111.00 lb BMI (Body Mass Index) 21.3 kg/m2 Last Menstrual Period [id number] 2 Parity 1 09/27/2009 2:17pm BP Systolic 98 mmHg BP Diastolic 56 mmHg Height 60.5 inches 5'0.50" Weight 101.00 lb BMI (Body Mass Index) 19.4 kg/m2 Last Menstrual Period 3588362 1 Parity 1 06/08/2009 10:08am BP Systolic 94 mmHg BP Diastolic 56 mmHg Height 60 inches 5'0" Weight 105.00 lb BMI (Body Mass Index) 20.5 kg/m2 Last Menstrual Period 5371383 1 Parity 1 04/30/2009 7:51am BP Systolic 112 mmHg BP Diastolic 52 mmHg Height 61 inches 5'1" Weight 111.00 lb BMI (Body Mass Index) 21.0 kg/m2 Last Menstrual Period 1571001 1 Parity 1 12/01/2008 9:07am BP Systolic 98 mmHg BP Diastolic 60 mmHg Body Temperature 97.7 F Height 61 inches 5'1" Weight 111.00 lb BMI (Body Mass Index) 21.0 kg/m2 Last Menstrual Period 4463096 11/28/2008 10:43am BP Systolic 118 mmHg BP Diastolic 68 mmHg Weight 110.00 lb Last Menstrual Period [id number] 06/09/2008 11:32am BP Systolic 122 mmHg BP [...] Mass Index) 20.6 kg/m2 Last Menstrual Period [id number] Results Test Date Facility Test Result H/L Range Note Laboratory test 02/11/2018 [facility] Genital For GRP B SEE RESULT 1 [place] [address] Strep Only BELOW [phone] Laboratory test 12/31/2017 [facility] Gardnerella/Yeast: SEE RESULT 2 [place] [address] Vaginal Dna BELOW [phone] Sequential 10/28/2017 [facility] Interpretation SEE BELOW 3 [...] Of Delivery 03/19/2018 Nuchal Translucency 1.6 mm [place] Rump Length 67 mm Ultrasound Date 09/11/2017 Nasal Bone NOT GIVEN Mother's Ethnic Origin Insulin Depend Diabetic NO Repeat Specimen NO Number Of Fetuses 1 HX Of Neural Tube Defects NO Cigarette Smoker NOT GIVEN Twin B Nasal Bone N 8 Urine Drug 09/11/2017 [facility] Urine Amphetamine Negative ng/ mL 9 Comp 20 Test [place] [address] [phone] Urine Barbiturates Negative ng/mL 10 Urine Benzodiazepines Negative ng/mL 11 Urine Cocaine Negative ng/mL 12 Urine Phencyclidine Negative ng/mL Cutoff: 25 Urine Tetrahydrocannabinol Presumptive Posi <SEE NOTE> Abnormal Cutoff: 50 13 ng/mL Creatinine, Urine 91.6 mg/dL Specific Breaks 1.014 pH 6.3 Oxidants Negative 14 Adulterants Comment Normal Codeine, Ur Not Detected ng/mL Cutoff: 25 15 Shrhkob-5-lbgv-glucuronide, Ur Not Detected ng/mL 16 Morphine, Ur Not Detected ng/mL Cutoff: 25 17 Zyukdpay-8-qgyo-glucuronide, U Not Detected ng/mL 18 6-monoacetylmorphine, Ur Not Detected ng/mL Cutoff: 25 19 Hydrocodone, Ur Not Detected ng/mL Cutoff: 25 20 Norhydrocodone, Ur Not Detected ng/mL Cutoff: 25 21 Dihydrocodeine, Ur Not Detected ng/mL Cutoff: 25 22 Hydromorphone, Ur Not Detected ng/mL Cutoff: 25 23 Vihghhbyaetmo0hbgkzaqfmxtcdkw Not Detected ng/mL 24 Oxycodone, Ur Not Detected ng/mL Cutoff: 25 25 Noroxycodone, Ur Not Detected ng/mL Cutoff: 25 26 Oxymorphone, Ur Not Detected ng/mL Cutoff: 25 27 Rzswrdrbefd-9-jdsh-glucuronide Not Detected ng/mL 28 Noroxymorphone, Ur Not Detected ng/mL Cutoff: 25 29 Fentanyl, Ur Not Detected ng/mL Cutoff: 2 30 Norfentanyl, Ur Not Detected ng/mL Cutoff: 2 31 Meperidine, Ur Not Detected ng/mL Cutoff: 25 32 Normeperidine, Ur Not Detected ng/mL Cutoff: 25 33 Naloxone, Ur Not Detected ng/mL Cutoff: 25 34 Rwdatlwp-0-epqx-glucuronide, U Not Detected ng/mL 35 Methadone, Ur [...] Ur Not Detected ng/mL Cutoff: 50 43 Rbyhvpyzyz-mstx-iqqolkrbgpe, U Not Detected ng/mL 44 Buprenorphine, Ur Not Detected ng/mL Cutoff: 5 45 Norbuprenorphine, Ur Present ng/mL Abnormal Cutoff: 5 46 Norbuprenorphine glucuronide Present ng/mL Abnormal Cutoff: 20 47 Opioid Interpretation See Comment 48 Laboratory 09/11/2017 [facility] Hepatitis C Undetected Undetected 49 [place] [address] Rna Quant IU/mL [phone] Liver Function 09/11/2017 [facility] Total Protein 7.2 g/dL N 6.4-8.9 [place] [address] [phone] Albumin 3.9 g/dL N 3.2-5.2 Globulin 3.3 g/dL N 2-4 Albumin/Globulin Ratio 1.2 N 1-3 Total Bilirubin 0.20 mg/dL N 0.2-1.0 Direct Bilirubin 0.00 mg/dL Low 0.03-0.18 Alkaline Phosphatase 54 U/L N 34-104 Alt 9 U/L N 7-52 Ast 13 U/L N 13-39 THC Confirmation 09/11/2017 [facility] Urine Carboxy >500.0 ng/ mL 50 [place] [address] THC Confirm [phone] Urine THC Interpretation Positive. 51 Sequential Integrated SCRN 1 KS 09/11/2017 [facility] Interpretation SEE BELOW 52 Age Risk Down Syndrome 1:690 LAUREN Down Syndrome Risk IN PROCESS <1:50 LAUREN Trisomy 18 Risk IN PROCESS <1:100 Calculated Gestational Age 12.9 53 Winsome-A 3043.1 ng/mL 54 Winsome-A Mom 2.26 HCG,Serum 64.2 IU/mL HCG Mom 0.65 NT Mom 1.07 55 Referring Physician Name ESTEPHANIA 56 Referring Physician Phone [phone] Referring Physician Npi [phone] Date Of 1990 59 Collection Date [...] Smoker NG 72 Ultrasound Date 09/11/2017 73 Pattern Fitter's Name [id number] 74 NTQR Pattern Fitter Id# [id number] NTQR Location Id# [id number] NTQR Reading Phys Id# [id number] FMF Pattern Fitter Id# NA 78 [place] Rump Length 67 mm 79 Nuchal Translucency 1.6 mm 80 Nasal Bone NOT GIVEN 81 If Twins NOT GIVEN 82 Twin B CRL NA mm 83 Twin B NT NA mm 84 Twin B Nasal Bone NA 85 PNL No 09/11/2017 [facility] Rubella Screen Immune Immune 86 [place] [address] [phone] Hemoglobin A1c 5.2 % N 4.0-5.6 87 Hepatitis B Surface Ag Nonreactive Nonreactive 88 Syphillis Igg W/Reflex RPR Nonreactive Nonreactive 89 CBC With No 09/11/2017 [facility] White Blood 8.3 10^3/uL N 3.5-10.8 [place] [address] Count [phone] Red Blood Count 4.05 10^6/uL N 4.0-5.4 [...] um3 N 7.4-10.4 Type And Screen 09/11/2017 [facility] Patient [place] [address] [phone] Antibody Screen NEGATIVE HIV 1/2 AB 09/11/2017 [facility] HIV 1 2 Nonreactive Nonreactive [address] [place] [address] Antibody [phone] Lead 09/11/2017 [facility] Lead,Venous, < 1.0 g/dL 0.0-4.9 91 [place] [address] B [phone] Submitting Laboratory Phone [phone] Urine Culture And 08/07/2017 [facility] Urine Culture SEE RESULT 93 [place] [address] BELOW [phone] GC/Chlamydia Dna 08/07/2017 [facility] Chlamydia [place] [address] trachomatis [phone] Rna Neisseria gonorrhoeae (GC) Rna Negative Negative Laboratory test 08/07/2017 [facility] Cytology SEE RESULT 94 [place] [address] BELOW [phone] Laboratory test 09/27/2009 [facility] Cytology 95 finding [place] [address] ---- <SEE [phone] NOTE> Laboratory test 06/08/2009 [facility] Surgical 96 finding [place] [address] Pathology ---- <SEE [phone] NOTE> Laboratory test 04/30/2009 [facility] Cytology 97 finding [place] [address] ---- <SEE [phone] NOTE> Ast-GP67 11/28/2008 [facility] Clindamycin <=0.25 S [address] [place] [address] [phone] Ciprofloxacin <=0.5 S Erythromycin <=0.25 S Gentamicin <=0.5 S Levofloxacin 0.25 S Linezolid 2 S Oxacillin >=4 R Rifampin <=0.5 S Trimeth-Sulfa <=10 S Tetracycline <=1 S Tigecycline <=0.12 S Vancomycin 1 S Laboratory test 11/28/2008 [facility] Genital METH RESIST [address] [place] [address] Culture S. A <SEE [phone] NOTE> Comp Metabolic 04/14/2008 [facility] Sodium 137 mmol/L 135- 14 [place] [address] 5 [phone] Potassium 3.7 mmol/L 3.5-5.0 Chloride 109 mmol/L [...] (Sgot) 20 U/L 12-42 Urinalysis W/Microscopic 04/14/2008 [facility] [place] [address] [phone] Appearance-Urine CLOUDY Specific Breaks-Ur 1.029 1.010-1.030 Esterase-Urine 2+ Abnormal Negative Nitrite NEGATIVE Negative Heddogeyrvvj-Ct-NWA NEGATIVE Negative Protein-Urine 1+ Abnormal Negative PH-Urine 7.0 5-9 Blood-Urine NEGATIVE Negative Ketones-Urine 1+ Abnormal Negative Bilirubin-Ur NEGATIVE Negative Glucose-Urine NEGATIVE Negative WBC-Urine 15-20 Abnormal 0-5 RBC-Urine 0-2 0-2 Epith Cells-Ur MANY Bacteria-Urine 3+ Type And Screen 04/14/2008 [facility] Patient [place] [address] [phone] Antibody Screen NEGATIVE CBC With 04/14/2008 [facility] White Blood 16.3 CUMM High 4.8- 10.8 [place] [address] Count [phone] Red Cell Count 3.25 CUMM Low 4.2-5.4 [...] Count 14.3 RBC Morphology NORMAL Laboratory 04/04/2008 [facility] Genital For GRP FINAL: [address] [place] [address] B Strep Only NEGATIVE [phone] <SEE NOTE> DS3 02/22/2008 [facility] [place] [address] Urine Screen DETECTED Detect [phone] Barbituates Urine Screen NONE DETECTED None Detect Benzodiazepine Ur Screen NONE DETECTED None Detect Cannabinoid Urine Screen POSITIVE Abnormal None Detect Cocaine Metabolites Urine NONE DETECTED None Detect Opiates Urine Screen NONE DETECTED None Detect PCP Urine Screen NONE DETECTED None Detect 104 Urinalysis W/Microscopic 02/22/2008 [facility] Ua Color YELLOW [place], [place] [address]14 [phone] Appearance-Urine CLEAR Specific Breaks-Ur 1.006 Low 1.010-1.030 Esterase-Urine NEGATIVE Negative Nitrite NEGATIVE Negative Xukfaijmlxkn-Vp-PVP NEGATIVE Negative Protein-Urine NEGATIVE Negative PH-Urine 6.0 5-9 Blood-Urine NEGATIVE Negative Ketones-Urine NEGATIVE Negative Bilirubin-Ur NEGATIVE Negative Glucose-Urine NEGATIVE Negative RBC-Urine NONE SEEN 0-2 Mucus Urine SMALL Epith Cells-Ur MODERATE Bacteria-Urine TRACE CBC With 02/22/2008 [facility] White Blood 12.5 CUMM High 4.8- 10.8 [place] [address] Count [phone] Red Cell Count 3.04 CUMM Low 4.2-5.4 [...] SLIGHT Polychromasia SLIGHT Comp Metabolic Panel 02/22/2008 [facility] Sodium 138 mmol/L 135-145 [place], [place] [address] [phone] Potassium 3.3 mmol/L Low 3.5-5.0 Chloride 111 [...] (Sgot) 18 U/L 12-42 Laboratory test 02/18/2008 [facility] Fasting 76 mg/dL 70- [address] [place] [address] Glucose [phone] 2HR Glucose 113 mg/dL 108 1HR Glucose 155 mg/dL 109 3HR Glucose 92 mg/dL 110 Laboratory test 12/16/2007 [facility] Rubella [place] [address] Screen [phone] Laboratory test 09/02/2007 [facility] Cytology normal [address] [place] [address] ---- <SEE [phone] NOTE> GC/ZHL On Thin 09/01/2007 [facility] GC On Thin NEGATIVE Negative [address] [place] [address] Prep Vial [phone] CHL On Thin Prep Vial NEGATIVE Negative 113 Manual Diff PN 09/01/2007 [facility] Polysegmented 42 % 38- 83 [place] [address] Neutrophil [phone] Band Neutrophil 1 % 0-8 Lymphocyte 40 % 5-47 Monocyte 8 % 0-13 Eosenophil 3 % 0-6 Atypical Lymph 6 % 0-6 Absolute Neutrophil Count 3.3 Anisocytosis SLIGHT 1 09/01/2007 [facility] White Blood Count 7.9 CUMM 4.8-10.8 [place] [address] [phone] Red Cell Count 4.09 CUMM Low 4.2-5.4 [...] Surface Ag NEGATIVE Negative 1 TS 09/01/2007 [facility] Patient [place] [address] [phone] Antibody Screen NEGATIVE Vad 09/01/2007 [facility] Vad Final NONREACTIVE Nonreactive [address] [place] [address] [phone] 1 SEE RESULT BELOW Name: KATALINA,CHARYLAN : [address]: Paulino ADAMS Acct: [id number] Unit: [id number] AGE: 27 Location: [facility] Re02/11/18 SEX: F Status: REG REF SPEC: [id number] [place]: 02/11/18-[address] [facility] [address]: Paulino ADAMS REQ: [id number] RECD: 02/11/18 STATUS: COMP _ SOURCE: CER/VAG/RE SPDESC: ORDERED: Grp B Strp Scrn COMMENTS: [id number] QUERIES: Is Patient Penicillin Allergic? N Is patient penicillin allergic and/or sensitivities needed? N Provider Requisition # C77#[id number]_ Procedure Result Reported Site Group B Strep Culture Screen Final 02/13/18- 0065 ML Group B Strep Screen Negative * ML - Main Lab . END OF REPORT DEPARTMENT OF PATHOLOGY, [address] [place] [address] Tomer Espinal M.D. Director [facility] # [id number] 2 SEE RESULT BELOW Name: LINDA DARDEN : [address]: Petra Garay CNM Acct: [id number] Unit: [id number] AGE: 27 Location: [facility] Re12/31/17 SEX: F Status: REG REF SPEC: [id number] [place]: 12/31/17-[address] [facility] [address]: Petra Garay [facility] REQ: [id number] RECD: 12/31/17 STATUS: COMP _ SOURCE: VAGINAL SPDESC: ORDERED: Dayana,Yeast DNA, Trich DNA COMMENTS: [id number] Would you like to order Trichomonas Vaginalis [...] CONTINUED ON NEXT PAGE DEPARTMENT OF PATHOLOGY, [address] [place] [address] Tomer Espinal M.D. Director [facility] # [id number] Patient: LINDA DARDEN [id number] (Continued) Specimen: [id number] Collected: 12/31/17-114 Received: 12/31/17-161 (Continued) Procedure Result Reported Site Trichomonas: Vaginal DNA Probe Final (continued) 01/01/18- 955 The presence or absence of T. vaginalis cannot be used as a test for therapeutic success or failure. * - Main Lab . END OF REPORT DEPARTMENT OF PATHOLOGY, [address] [place] [address] Tomer Espinal M.D. Director [facility] # [id number] 3 SCREEN NEGATIVE FOR OPEN NTD, DOWN SYNDROME AND TRISOMY 18. NT WAS USED IN THE RISK CALCULATIONS. 4 [place] rump length (CRL) was used to calculate gestational age. DEYSI, if provided, was not used for gestational age dating. 5 Reference Range: <2.50 IDD <1.90 TWINS <4.00 TWINS IDD <3.50 TRIPLETS <4.50 6 This test was performed using a kit that has not been cleared or approved by the FDA. The analytical performance characteristics of this test have been determined by [facility] [facility]. This test should not be used for [...] technique. Interpretation reviewed by: Zach Lee, Ph.D., [facility]. 8 For additional information, please refer to http://[employer]/faq/FAU57 (This link is provided for informational/educational purposes [...] call ext [phone]; For recalculations, fax to [phone]. 9 REFERENCE VALUE Cutoff: 500 10 REFERENCE [...] 100 19 Metabolite of heroin 20 Lortab, Chimayo, Vicodin; Also a very minor metabolite of [...] developed and its performance characteristics determined by [facility] in a manner consistent with CLIA requirements. This test has not been cleared or approved by the U.S. Food and Drug Administration. Test Performed by: [facility] [employer] - [address] [address] 49 Result in log IU/mL is Undetected. ADDITIONAL INFORMATION The quantification range of this assay is 15 to 100,000,000 IU/mL (1.18 log to 8.00 log IU/mL). Testing was performed using the carmen HCV test ([employer] with the carmen Storify0 System. Test Performed by: [facility] [employer] - [address] [address] REFERENCE VALUE Cutoff: 3.0 51 ADDITIONAL INFORMATION This report is intended for use in clinical monitoring and management of patients. It is not intended for use in employment-related testing. This test was developed and its performance characteristics determined by [facility] in a manner consistent with CLIA requirements. This test has not been cleared or approved by the U.S. Food and Drug Administration. Test Performed by: [facility] [address] [place] [address] 52 This patient's risk does not exceed [...] Specimen # from Part 1: [id number] 53 [place] rump length (CRL) was used to calculate gestational age. DEYSI, if provided, was not used for gestational age dating. 54 This test was performed using a kit that has not been cleared or approved by the FDA. The analytical performance characteristics of this test have been determined by [facility] [facility]. This test should not be used for diagnosis without confirmation by other medically established means. 55 INTERPRETATION REVIEWED BY: VISHAL WARD MD, DABMG, FACMG, FACB, MB(ASCP), MBS For additional information, please refer to http://education.[employer]/faq/FAQ89 (This link is being provided for informational/educational [...] call ext [phone]; For recalculations, fax to [phone]. 56 For additional information, please refer to http://[employer]/faq/FAQ89 (This link is being provided for informational/educational [...] call ext [phone]; For recalculations, fax to [phone]. 57 For additional information, please refer to http://[employer]/faq/FAQ89 (This link is being provided for informational/educational [...] call ext [phone]; For recalculations, fax to [phone]. 58 For additional information, please refer to http://[employer]/faq/FAQ89 (This link is being provided for informational/educational [...] call ; For technical questions, call ext [phone]; For recalculations, fax to [phone]. 59 For additional information, please refer to http://[employer]/faq/FAQ89 (This link is being provided for informational/educational [...] call ; For technical questions, call ext [phone]; For recalculations, fax to [phone]. 60 For additional information, please refer to http://[employer]/faq/FAQ89 (This link is being provided for informational/educational [...] call ext [phone]; For recalculations, fax to [phone]. 61 For additional information, please refer to http://[employer]/faq/FAQ89 (This link is being provided for informational/educational [...] call ext [phone]; For recalculations, fax to [phone]. 62 For additional information, please refer to http://[employer]/faq/FAQ89 (This link is being provided for informational/educational [...] call ext [phone]; For recalculations, fax to [phone]. 63 For additional information, please refer to http://[employer]/faq/FAQ89 (This link is being provided for informational/educational [...] call ext [phone]; For recalculations, fax to [phone]. 64 For additional information, please refer to http://[employer]/faq/FAQ89 (This link is being provided for informational/educational [...] call ext [phone]; For recalculations, fax to [phone]. 65 For additional information, please refer to http://[employer]/faq/FAQ89 (This link is being provided for informational/educational [...] call ext [phone]; For recalculations, fax to [phone]. 66 For additional information, please refer to http://[employer]/faq/FAQ89 (This link is being provided for informational/educational [...] call ext [phone]; For recalculations, fax to [phone]. 67 For additional information, please refer to http://[employer]/faq/FAQ89 (This link is being provided for informational/educational [...] call ; For technical questions, call ext [phone]; For recalculations, fax to [phone]. 68 For additional information, please refer to http://[employer]/faq/FAQ89 (This link is being provided for informational/educational [...] call ext [phone]; For recalculations, fax to [phone]. 69 For additional information, please refer to http://[employer]/faq/FAQ89 (This link is being provided for informational/educational [...] call ext [phone]; For recalculations, fax to [phone]. 70 For additional information, please refer to http://[employer]/faq/FAQ89 (This link is being provided for informational/educational [...] call ext [phone]; For recalculations, fax to [phone]. 71 For additional information, please refer to http://[employer]/faq/FAQ89 (This link is being provided for informational/educational [...] call ; For technical questions, call ext [phone]; For recalculations, fax to [phone]. 72 For additional information, please refer to http://[employer]/faq/FAQ89 (This link is being provided for informational/educational [...] call ext [phone]; For recalculations, fax to [phone]. 73 For additional information, please refer to http://[employer]/faq/FAQ89 (This link is being provided for informational/educational [...] call ext [phone]; For recalculations, fax to [phone]. 74 For additional information, please refer to http://[employer]/faq/FAQ89 (This link is being provided for informational/educational [...] call ext [phone]; For recalculations, fax to [phone]. 75 For additional information, please refer to http://[employer]/faq/FAQ89 (This link is being provided for informational/educational [...] call ext [phone]; For recalculations, fax to [phone]. 76 For additional information, please refer to http://[employer]/faq/FAQ89 (This link is being provided for informational/educational [...] call ; For technical questions, call ext [phone]; For recalculations, fax to [phone]. 77 For additional information, please refer to http://[employer]/faq/FAQ89 (This link is being provided for informational/educational [...] call ; For technical questions, call ext [phone]; For recalculations, fax to [phone]. 78 For additional information, please refer to http://[employer]/faq/FAQ89 (This link is being provided for informational/educational [...] call ext [phone]; For recalculations, fax to [phone]. 79 For additional information, please refer to http://[employer]/faq/FAQ89 (This link is being provided for informational/educational [...] call ext [phone]; For recalculations, fax to [phone]. 80 For additional information, please refer to http://[employer]/faq/FAQ89 (This link is being provided for informational/educational [...] call ext [phone]; For recalculations, fax to [phone]. 81 For additional information, please refer to http://[employer]/faq/[email or web address] (This link is being provided for informational/educational [...] call ext [phone]; For recalculations, fax to [phone]. 82 For additional information, please refer to [email or web address]/faq/FAQ89 (This link is being provided for informational/educational [...] call ext [phone]; For recalculations, fax to [phone]. 83 For additional information, please refer to [email or web address]/faq/FAQ89 (This link is being provided for informational/educational [...] call ; For technical questions, call ext [phone]; For recalculations, fax to [phone]. 84 For additional information, please refer to [email or web address] (This link is being provided for informational/educational [...] call ext [phone]; For recalculations, fax to [phone]. 85 For additional information, please refer to [email or web address]://[email or web address]/faq/FAQ89 (This link is being provided for informational/educational [...] call ext [phone]; For recalculations, fax to [phone]. 86 [id number] Therapeutic target for the treatment of diabetes mellitus patients is <7% HBA1C, and in selective patients <6.0%. Please refer to [place] [employer] diabetic care guidelines for further information. 88 [id number] Warning: A positive result is not [...] developed and its performance characteristics determined by [facility] in a manner consistent with CLIA requirements. This test has not been cleared or approved by the U.S. Food and Drug Administration. 92 Test Performed by: [facility] [address] [place] [address] 93 SEE RESULT BELOW Name: LINDA DARDEN : [address]: Petra Garay [facility] Acct: [id number] Unit: [id number] AGE: 27 Location: [facility] Re08/07/17 SEX: F Status: REG REF SPEC: [id number] [place]: 08/07/17-[address] [facility] [address]: Petra Garay [facility] REQ: [id number] RECD: 08/07/17 STATUS: COMP _ SOURCE: URINE SPDESC: ORDERED: Urine Culture COMMENTS: [id number] Urine Source: Random Procedure Result Reported Site Urine Culture Final 08/08/17- 1516 ML No Growth (<1,000 CFU/mL) * - [facility] . END OF REPORT DEPARTMENT OF PATHOLOGY, [address] [place] [address] Tomer Espinal M.D. Director [facility] # [id number] 94 SEE RESULT BELOW Name: KEESHA DARDENRYLAN : [address]: Petra Garay CNM Acct: [id number] Unit: [id number] AGE: 27 Location: [facility] Re08/07/17 SEX: F Status: REG REF SPEC: [id number] [place]: 08/07/17-[address] [facility] [address]: Petra Garay CNM REQ: [id number] RECD: 08/07/17 STATUS: SOUT _ ORDERED: TP IMAGE ANAL COMMENTS: [id number] Negative for Intraepithelial lesion or Malignancy A. [...] was evaluated with the assistance of the Buzz360 Test Imaging System. Due to cytologic findings at the farm mechanic apprentice microscope, comprehensive manual rescreening by a Box Gluer may be required. The Pap Smear is [...] years. END OF REPORT DEPARTMENT OF PATHOLOGY, [address] [place] [address] Tomer Espinal M.D. Director [facility] # [id number] 95 ---- [facility]: [facility]02[facility] TIME: 1346 Specimen Inquiry RUN USER: INTERFACE -- Name: LINDA DARDEN Status: REG REF Re09/27/09 Age/Sex: 19/F Unit#: [id number] Location: [facility]. : [birth year] -- Specimen: [id number] SOUT Spec Date: 09/27/[address]: Susan [...] was evaluated with the assistance of the SmartKemPrep Pap Test Imaging System. Due to cytologic findings at the farm mechanic apprentice microscope, comprehensive manual rescreening by a Box Gluer was required. The Pap Smear is a [...] to three years. -- DEPARTMENT OF PATHOLOGY, [address] [place] [address] [facility] Permit #[id number] Eveline So M.D. Gas Pumping Station Operator Dir gretta -- -- RUN DATE: 10/02/09 [facility] NMI LIVE PAGE 2 RUN TIME: 6986 Specimen Inquiry RUN USER: INTERFACE -- Name: LINDA DARDEN Status: REG REF Re09/27/09 Age/Sex: 19/F Unit#: [id number] Location: [facility] : 90 -- -- CONTINUED -- Initial evaluation performed by Norma BUTCHER([facility]) 10/02/09 Final Interpretation electronically signed by: TOMER ESPINAL MD 10/02/09 13 45 -- -- DEPARTMENT OF PATHOLOGY, [address] [place] [address] [facility] Permit #[id number] Eveline So M.D. Gas Pumping Station Operator gretta -- 96 ---- RUN DATE: 06/12/09 [facility] NMI LIVE PAGE 1 RUN TIME: 1517 Specimen Inquiry RUN USER: INTERFACE -- Name: KEESHA DARDENAWAELVIS Status: REG REF Re06/08/09 Age/Sex: 18/F Unit#: [id number] [facility] [birth year] -- Specimen: [id number] SOUT Spec Date: 06/08/[address]: Susan [...] 06/12/09 1515 -- -- DEPARTMENT OF PATHOLOGY, [address] [place] [address] [facility] Permit #[id number] Tomer Espinal M.D. Director Bianca Still M.D. Gas Pumping Station Operator Dir glynn -- 97 ---- RUN DATE: 05/07/09 [facility] NMI LIVE PAGE 1 RUN TIME: 1409 Specimen Inquiry RUN USER: INTERFACE -- Name: LINDA DARDEN Status: REG REF Re04/30/09 Age/Sex: 18/F Unit#: [id number] Location: [facility] : [birth year] -- Specimen: [id number] SOUT Spec Date: 04/30/[address]: Susan [...] significance (ASC-US) * NOTE Specimen sent to [facility], [place], [place] for high risk HPV DNA testing on 05/01/09 at 1600 by DB. ADDENDUM Addendum #1 Entered: 05/03/09-1442 Patricia Human Papilloma Virus test results received with preparation and diagnosis completed by [facility] [place]. Results: THIS IS A RETEST TO BE TESTED ON 05/07/2009 High Risk (HPV types 16, 18, 31, 33, 35, 39, 45, 51, 52, 56, 58, 59, 68) -- DEPARTMENT OF PATHOLOGY, [address] [place] [address] [facility] Permit #[id number] Tomer Espinal M.D. Director Bianca Still M.D. Gas Pumping Station Operator Dir glynn -- -- RUN DATE: 05/07/09 [facility] NMI LIVE PAGE 2 RUN TIME: 1409 Specimen Inquiry RUN USER: INTERFACE -- Name: LINDA DARDEN Status: REG REF Re04/30/09 Age/Sex: 18/F Unit#: [id number] Location: [facility] : 90 -- -- CONTINUED -- ADDENDUM (Continued) Addendum Review Huyen TAVERA([facility]) 05/03/09 -- Addendum #2 Entered: 05/07/09-7235 Patricia Human Papilloma Virus test results received with preparation and diagnosis completed by [facility], [place], [place]. Results: POSITIVE High Risk (HPV [...] Ref: J. Natl. Cancer Inst. 2001;93:293-299 RACHEL 2002;287:2945-1212 Addendum Review Huyen TAVERA([facility]) 05/07/09 -- This Pap test was evaluated with the assistance of the SmartKemPrep Pap Test Imaging System. Due to cytologic findings at the farm mechanic apprentice microscope, comprehensive manual rescreening by a Box Gluer was required. -- DEPARTMENT OF PATHOLOGY, [address] [place] [address] [facility] Permit #[id number] Tomer Espinal M.D. Director Bianca Still M.D. Gas Pumping Station Operator Dir gretta -- -- RUN DATE: 05/07/09 [facility] NMI LIVE PAGE 3 RUN TIME: 1409 Specimen Inquiry RUN USER: INTERFACE -- Name: LINDA DARDEN Status: REG REF Re04/30/09 Age/Sex: 18/F Unit#: [id number] Location: [facility]. : [birth year] -- -- CONTINUED [...] 05/01/09 1032 -- -- DEPARTMENT OF PATHOLOGY, [address] [place] [address] [facility] Permit #[id number] Tomer Espinal M.D. Director Bianca Still M.D. Gas Pumping Station Operator Dir gretta -- [address] MOTT BY CULLEN at 0925 on 12/01/08. Results read back accurately. RESULTS SENT TO [facility] INFECTION CONTROL NURSE ON 12/01/08 AT 0927 BY CULLEN. 99 METH RESIST S. AUREUS (MRSA) NORMAL TELMA 10 Anion gap measurement may be of limited value in the 0 presence of any alkalosis, especially in a combined acid base disorder. . 10 Note change in reference range as of 12/23/07. The 1 change was based on recommendations from the [place] [employer]. 10 Please note change in [...] change was based on recommendations from the [place] [employer]. 10 Please note change in reference range effective 07 7 . 10 REFERENCE RANGE: 5-15 MG/DL ABOVE FASTING 8 10 REFERENCE RANGE: 20-50 MG/DL ABOVE FASTING 9 11 REFERENCE RANGE: FASTING OR 10 MG/DL BELOW 0 11 ---- 1 RUN DATE: 09/02/07 [facility] NMI LIVE PAGE 1 RUN TIME: 1437 Specimen Inquiry RUN USER: INTERFACE -- Name: LINDA DARDEN Status: REG REF Re09/01/07 Age/Sex: 17/F Unit#: [id number] Location: [facility] : [birth year] -- Specimen: [id number] [facility] Spec Date: 09/01/[address] [facility] [address]: Patricia Cervantes TRANSPORTATION ASSOCIATE Spec Type: CYTOLOGY Received: 09/02/07-1143 Copies to: [...] years. Final Interpretation electronically signed by: Huyen TAVERA([facility]) 09/02/07 1437 -- -- DEPARTMENT OF PATHOLOGY, [address] [place] [address] [facility] Permit #[id number] Tomer Espinal M.D. Director of Laboratories [...] from confidential records which are protected by [place] State law. State law prohibits you from making further disclosure of this information without the specific written consent of the person to whom it pertains, or as otherwise permitted by law. Any unauthorized further disclosure in violation of state law may result in a fine or mcc sentence or both. General authorization for the release of medical or other information is not, except in limited circumstances set forth in Part 63, Title 10, of [facility], sufficient authorization for further disclosure. Disclosure of confidential HIV information that occurs as the result of a general authorization for the release of medical or other information will be in violation of the state law and may result in a fine or a mcc sentence. . Procedures Date Code Description Status 03/10/2018 50148 Obstetric Care Routine Completed 03/08/2018 88921 Echography Uterus Limited Completed 03/08/2018 12045 Non-Stress Test Completed 03/05/2018 86886 Echography Uterus Limited Completed 03/05/2018 50209 Non-Stress Test Completed 02/26/2018 70081 Echography Uterus Limited Completed 02/26/2018 41428 Non-Stress Test Completed 02/19/2018 07139 Biophysical Profile W/ NST Completed 02/19/2018 90489 Echography Uterus Follow-Up Or Repeat Completed 02/19/2018 54510 Non-Stress Test Completed 02/11/2018 23903 Echography Uterus Limited Completed 02/11/2018 25696 Non-Stress Test Completed 02/05/2018 46597 Doppler Velocimetry Umbilical Artery Completed 02/05/2018 72451 Biophysical Profile Without Non Stress Test Completed 02/05/2018 93110 Echography Uterus Follow-Up Or Repeat Completed 01/07/2018 17697 Echography Uterus Follow-Up Or Repeat Completed 10/28/2017 13057 Echography Uterus Complete Completed 09/11/2017 67051 Nuchal Translucency Ultrasound /First Gestation Completed 08/07/2017 65845 OB Ultrasound First Trimester Completed 06/08/2009 49584 Colposcopy W/Biopsy Cervix/Endocervical Curettage Completed 11/28/2008 48732 I & D Abscess Vulva Or Perineal Completed 04/28/2008 28618 Obstetric Care Routine Completed 03/20/2008 65503 Echography Uterus Follow-Up Or Repeat Completed 02/23/2008 73667 Non-Stress Test Completed 02/03/2008 67818 Non-Stress Test Completed 12/16/2007 05309 Echography Uterus Complete Completed 12/16/2007 10244 Echography Uterus Complete Completed 10/14/2007 92707 Nuchal Translucency Ultrasound /First Gestation Completed 10/14/2007 26844 Nuchal Translucency Ultrasound /First Gestation Completed 09/14/2007 71608 Echography Uterus Limited Completed 09/14/2007 76131 OB Ultrasound First Trimester Completed 09/01/2007 05644 OB Ultrasound First Trimester Completed 09/01/2007 84193 OB Ultrasound First Trimester Completed Encounters Type Date Location Provider Dx Diagnosis Office Visit 09/27/2009 [facility] Susan Mott, 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
[2018-09-18 11:41] VITALS: BP 114/80
--- NOTE | 2018-09-18 12:22 | UC ---
Dental HPI - HPI Summary HPI Summary: patient had all top teeth extracted 10 days ago in [place]. over past few days she has started to smell foul odor in nose and feels air going into R sinus area when blowing on daughter's abd playing. took 3 amoxil yesterday/ today she had "left over" from previous Rx. no fever or chills. no drainage, today has pain R sinus area. Pt is breast feeding 6mo old - History of Current Complaint Chief Complaint: UCDentalProblem Stated Complaint: SINUS ISSUES Time Seen by Provider: 09/18/18 11:44 Hx Obtained From: Patient Hx Last Menstrual Period: 06/2017- 6month old and breast feeding ?: No Onset/Duration: Gradual Onset Severity: Moderate Pain Intensity: 3 Aggravating Factor(s): Nothing Alleviating Factor(s): Nothing Related History: Previous Dental Care on Same Tooth - Allergies/Home Medications Allergies/Adverse Reactions: Allergies Allergy/AdvReac Type Severity Reaction Status Date / Time morphine Allergy Mild Hives Verified 09/18/18 11:34 PMH/Surg Hx/FS Hx/Imm Hx Previously Healthy: Yes - Surgical History Surgical History: Yes Surgery Procedure, Year, and Place: Tonsillectomy age 16 - Family History Known Family History: Positive: None - Social History Occupation: Unemployed Lives: With Family Alcohol Use: None Substance Use Type: Marijuana, Prescribed Substance Use Comment - Amount & Last Used: Subtex; Occassiona Marijuana use Smoking Status (MU): Light Every Day Tobacco Smoker Type: Cigarettes, Pipe Amount Used/How Often: 3-4 cig/day Length of Time of Smoking/Using Tobacco: 6+ years Have You Smoked in the Last Year: Yes Household Exposure Type: Cigarettes, Pipe Cessation Counseling: Patient Advised to Stop - Immunization History Most Recent Influenza Vaccination: 03/04/2018 Most Recent Tetanus Shot: unknown Most Recent Pneumonia Vaccination: unknown Review of Systems All Other Systems Reviewed And Are Negative: Yes Constitutional: Positive: Negative. Negative: Fever, Chills Skin: Positive: Negative ENT: Positive: Dental Pain - healing extractions, Sinus Congestion, Sinus Pain/ Tenderness - R side. Negative: Nasal Discharge Respiratory: Positive: Negative Cardiovascular: Positive: Negative Neurological: Positive: Negative. Negative: Headache Psychological: Positive: Negative Is Patient Immunocompromised?: No Physical Exam Triage Information Reviewed: Yes Appearance: Well-Appearing, No Pain Distress, Well-Nourished Vital Signs: Initial Vital Signs Temp 98.8 F 09/18/18 11:35 Pulse 78 09/18/18 11:35 Resp 18 09/18/18 11:35 BP 114/80 09/18/18 11:35 Pulse Ox 98 09/18/18 11:35 Vital Signs Reviewed: Yes Eyes: Positive: Conjunctiva Clear ENT: Positive: Sinus tenderness - R side. Negative: Nasal congestion, Nasal drainage Dental: Positive: Other: - weel heaing upper gums, no evidence drainage or erythema Neck: Positive: Supple, Nontender, No Lymphadenopathy Respiratory Exam: Normal Cardiovascular Exam: Normal Neurological Exam: Normal Psychological Exam: Normal Skin Exam: Normal Dental Complaint Course/Dx - Differential Dx/Diagnosis Differential Diagnosis/Dx: Odontogenic Pain, Other - oral infection, sinusitis Provider Diagnosis: Sinusitis Discharge - Sign-Out/Discharge Documenting (check all that apply): Patient Departure All imaging exams completed and their final reports reviewed: No Studies - Discharge Plan Condition: Stable Disposition: HOME Prescriptions: Clarithromycin 500 mg PO BID #14 tablet Patient Education Materials: Sinusitis (ED) Referrals: No Primary Care Phys,NOPCP [Primary Care Provider] - Additional Instructions: start Biaxin antibiotic today and follow-up dentist as soon as possible for recheck as planned - Billing Disposition and Condition Condition: STABLE Disposition: Home
== END 2018-09-18 12:38 | disposition home or self-care (01) ==
LOC: UCEAST 11:26
DX: J32.9 Chronic sinusitis, unspecified (principal); K08.89 Other specified disorders of teeth and supporting structures; K08.409 Partial loss of teeth, unspecified cause, unspecified class; Z88.5 Allergy status to narcotic agent; F17.210 Nicotine dependence, cigarettes, uncomplicated
CPT/HCPCS: 99212; G0463

== ENCOUNTER 2019-01-19 11:11 | Emergency (ER) | payer OTHER ==
[2019-01-19 11:23] VITALS: BP 119/72
--- NOTE | 2019-01-19 12:14 | UC ---
Throat Pain/Nasal Jim HPI - HPI Summary HPI Summary: 28 year old female with h/o hep C, opiod addiction, presents with nasal congestion/ pain, non-productive cough. "scratchy" throat, fever/ chills, muscle aches, fatigue x 24 hours. 1 child is sick at home. No prior symtpoms. + tob use. Works at [employer] - History of Current Complaint Chief Complaint: UCRespiratory Stated Complaint: CHEST CONGESTION, AND COUGH Time Seen by Provider: 01/19/19 12:00 Hx Obtained From: Patient Hx Last Menstrual Period: 01/18/19 ?: No Onset/Duration: Sudden Onset Severity: Moderate Pain Intensity: 4 Pain Scale Used: 0-10 Numeric Cough: Nonproductive Associated Signs & Symptoms: Positive: Hoarseness, Sinus Discomfort, Nasal Discharge, Fever Related History: Smoking - Allergies/Home Medications Allergies/Adverse Reactions: Allergies Allergy/AdvReac Type Severity Reaction Status Date / Time morphine Allergy Mild Hives Verified 01/19/19 11:23 PMH/Surg Hx/FS Hx/Imm Hx Previously Healthy: Yes - opiod addiction, hep c - Surgical History Surgical History: Yes Surgery Procedure, Year, and Place: Tonsillectomy age 16, necrotizing faciitis arm - Family History Known Family History: Positive: None - Social History Alcohol Use: None Substance Use Type: None Substance Use Comment - Amount & Last Used: Subtex; Occassiona Marijuana use Smoking Status (MU): Light Every Day Tobacco Smoker Type: Cigarettes Amount Used/How Often: 5 cig/day Length of Time of Smoking/Using Tobacco: 6+ years Have You Smoked in the Last Year: Yes Household Exposure Type: Cigarettes - Immunization History Most Recent Influenza Vaccination: 03/04/2018 Most Recent Tetanus Shot: unknown Most Recent Pneumonia Vaccination: unknown Review of Systems All Other Systems Reviewed And Are Negative: Yes Constitutional: Positive: Fever, Chills, Fatigue ENT: Positive: Sore Throat, Ear Ache, Sinus Congestion, Sinus Pain/Tenderness Respiratory: Positive: Shortness Of Breath, Cough Neurological: Positive: Negative Psychological: Positive: Negative Is Patient Immunocompromised?: No Physical Exam Triage Information Reviewed: Yes Appearance: No Pain Distress, Well-Nourished, Ill-Appearing - mild illness Vital Signs: Initial Vital Signs Temp 99.1 F 01/19/19 11:17 Pulse 71 01/19/19 11:17 Resp 16 01/19/19 11:17 BP 119/72 01/19/19 11:17 Pulse Ox 99 01/19/19 11:17 Vital Signs Reviewed: Yes Eyes: Positive: Conjunctiva Clear ENT: Positive: Pharynx normal, TMs normal, Sinus tenderness, Uvula midline. Negative: TM bulging, TM dull, TM red, Tonsillar swelling, Tonsillar exudate, Muffled voice Neck: Positive: Supple, No Lymphadenopathy, Tenderness @ - b/l submand Respiratory: Positive: Chest non-tender, Lungs clear, Normal breath sounds, No respiratory distress, No accessory muscle use. Negative: Respiratory distress, Crackles, Rhonchi, Stridor, Wheezing Cardiovascular: Positive: RRR, No Murmur Musculoskeletal Exam: Normal Neurological Exam: Normal Psychological Exam: Normal Throat Pain/Nasal Course/Dx - Course Course Of Treatment: Upper respiratory symptoms- - Motrin/ tylenol as needed for pain, fever, chills - Increase fluid intake - Work note given - Go to ER with worsening shortness of breath, fever > 102, increased symptoms, neck stiffness, or no improvement within 4 days - Differential Dx/Diagnosis Differential Diagnosis/HQI/PQRI: Pharyngitis, Sinusitis, Tonsillitis Provider Diagnosis: Upper respiratory infection Discharge ED - Sign-Out/Discharge Documenting (check all that apply): Patient Departure All imaging exams completed and their final reports reviewed: No Studies - Discharge Plan Condition: Good Disposition: HOME Prescriptions: Albuterol HFA INHALER* [Ventolin HFA Inhaler*] 1 - 2 puff INH Q4H PRN #1 mdi PRN Reason: shortness of breath, cough Patient Education Materials: Upper Respiratory Infection (ED) Forms: *Work Release Referrals: No Primary Care Phys,NOPCP [Primary Care Provider] - [facility] [Outside] Additional Instructions: Upper respiratory symptoms- - Motrin/ tylenol as needed for pain, fever, chills - Increase fluid intake - Work note given - Go to ER with worsening shortness of breath, fever > 102, increased symptoms, neck stiffness, or no improvement within 4 days - Billing Disposition and Condition Condition: GOOD Disposition: Home
== END 2019-01-19 12:31 | disposition home or self-care (01) ==
LOC: UCEAST 11:11
DX: J06.9 Acute upper respiratory infection, unspecified (principal); F17.210 Nicotine dependence, cigarettes, uncomplicated; Z88.5 Allergy status to narcotic agent
CPT/HCPCS: 99212; G0463